=== PATIENT | male | born 1960 | race Caucasian/White ===

== ENCOUNTER 2018-02-22 18:52 | Emergency (ER) | payer BC, SELFPAY ==
[2018-02-22 18:55] VITALS: BP 136/96; PULSE 97; RESP 18; TEMP 37; O2SAT 98
--- NOTE | 2018-02-22 19:32 | ED.GENADUL_ITS ---
Discharge Plan Disposition Patient Disposition: HOME Condition: Fair Discharge Details Chief Complaint: Orthopedic Clinical Impression: Effusion of knee joint, left, Internal derangement of knee Primary Care Provider: Robert Kaur ED Provider: Darcy Walsh Home Meds and New Rx's Prescriptions: No Action No Known Home Meds RF: 0 Discharge Instructions Instructions: Swollen Knee Joint (ED), Knee Pain (ED) Additional Instructions: Encourage rest, ice, elevation. Please call orthopedics for follow up, you may call the office tomorrow [phone]. Tylenol and/or Motrin as needed for discomfort. If you develop redness, warmth, drainage, fevers/chills please seek care urgently once again. Avoid activities that cause increased pain. Referrals: Silvino Charles MD [ [facility] STAFF PHYSICIAN] - Discharge Data Discharge Date/Time-TO BE ENTERED AT DEPARTURE: 02/22/18 19:50 Medical Decision Making Patient is a 57-year-old male presenting today with chief complaint of chronic left knee pain. He reports that he had difficulty with his knee for several years. Reports that he has had waxing and waning effusion. Reports that he has worn a brace on and off. Few days ago, while at work, he is wearing a knee brace when the knee let go. Denies actual fall. Did not land on the knee. Since that time he has noted swelling. Patient does have a moderate effusion on exam. No erythema or warmth. Patient presents with request to be established with primary care. This sounds to have been an issue for several years. No recent trauma. No ligamentous laxity on exam. Patient is able to straight leg raise. Limited flexion, likely secondary to the effusion. Patient discuss treatment options. We did discuss x-ray but at this point, he would prefer evaluation by orthopedics first. Advised that this point he may show degenerative changes but likely would not have any acute findings as he has not had any recent trauma. Advised he may need follow-up with orthopedics. He will be placed on their list for follow-up. Encouraged rest, ice, elevation. I did advise splinting and patient declined this. He reports he is been wearing a sleeve. I did advise the use of a hinged knee brace. I am concerned, as the patient has had catching and locking and pain worse with flexion and squatting, he may have a meniscal injury. Patient declined hinged knee brace. Insists that bracing tends to make his pain worse. Encourage rest , ice, elevation. Tylenol and/or ibuprofen as needed for discomfort. All his questions and concerns were addressed and he is in agreement with this plan. HPI General Mode of arrival: ambulatory . Date/Time Provider Initiated Documentation: 02/22/18 19:09 . Limitations to Documentation: no limitations . Information obtained by: patient . History of Present Illness 57 year old M presents to the emergency department with the chief complaint of left knee pain, described as moderate, Quality is described as aching, and is localized to the left and lower extremity. Patient reports no radiation. Patient started experiencing this year(s) and it has been intermittent. Cold therapy improves symptom(s), and Immobilization improves symptom(s), (elevation helps, splinting increases discomfort) Movement worsens symptoms (deep bending/squating) . Patient notes no other symptoms.; denies chest pain, cough, fever/chills, loss of appetite, nausea/vomiting, rash and weakness. Patient did receive the following treatments prior to arrival, splint Related Data Home Medications Medication Instructions Recorded Confirmed Unknown [No Known Home Meds] 02/22/18 02/22/18 Allergies Allergy/AdvReac Type Severity Reaction Status Date / Time No Known Allergies Allergy Unverified 02/22/18 18:58 General Stated Complaint: Orthopedic CIERRA: 4 Review of Systems Constitutional Reports as per HPI, Denies chills, Denies fever(s) and Denies weakness Cardiovascular Denies chest pain and Denies dyspnea Respiratory Denies cough and Denies dyspnea Musculoskeletal Reports as per HPI, Reports abnormal gait (antalgic gait), Denies numbness and Denies tingling Integumentary/Breasts Denies erythema, Denies rash, Denies skin pain, Denies skin swelling, Denies skin ulcer and Denies sores Neurologic Reports abnormal gait (antalgic gait), Denies numbness, Denies radicular pain, Denies tingling, Denies paresthesias and Denies weakness [facility], [facility]1983 Social History Smoking/Tobacco Use Status: Current every day Exam Const General: cooperative, healthy appearing, comfortable, no acute distress, well developed and well groomed Nutritional Appearance: average body habitus and well nourished Orientation: alert and awake Resp Effort & Inspection: normal respiratory effort, able to speak in complete sentences and no respiratory distress Auscultation: clear to auscultation bilaterally Cardio Rate: regular rate Rhythm: regular rhythm Heart Sounds: S1 normal and S2 normal Skin General skin exam: no rashes or lesions noted Lesions: no lesions Rashes: no rashes Neuro General: alert and awake Cognition: normal cognition Speech: speech normal Gait: antalgic Motor: muscle tone normal throughout Sensory Exam: no sensory deficits noted Extrem Left lower extremity: normal capillary refill and knee Details: tenderness ( diffuse discomfort. No point tenderness), swelling and knee ligament exam normal ; ROM abnormal, no ecchymosis, no crepitus, no foreign bodies, no deformity and no unusual warmth; abnormal ROM (Full extension, flexion limited to 100 degrees. Has moderate effusion. No evidence of trauma. ), no cyanosis, no edema and joint enlargement noted (effusion as above) Psych Appearance: grossly normal and well kempt Mental Status: mental status grossly normal Speech and Movement: speech and movement normal Mood: congruent mood Course Vital Signs Temperature 37 C 02/22/18 18:55 Pulse 97 H 02/22/18 18:55 Respiratory Rate 18 02/22/18 18:55 Blood Pressure 136/96 H 02/22/18 18:55 Pulse Oximetry 98 02/22/18 18:55 Temperature 37 C 02/22/18 18:55 Temperature Source Temporal Artery Scan 02/22/18 18:55 Pulse 97 H 02/22/18 18:55 Respiratory Rate 18 02/22/18 18:55 Blood Pressure 136/96 H 02/22/18 18:55 Pulse Oximetry 98 02/22/18 18:55 Oxygen Delivery Method Room Air 02/22/18 18:55 Oxygen Flow Rate 0 02/22/18 18:55 Pain Level 0 02/22/18 18:55
[2018-02-22 19:54] VITALS: BP 136/96; PULSE 97; RESP 18; TEMP 37; O2SAT 98
--- NOTE | 2018-02-23 08:43 | PDOC.ERCMPRO ---
Care Management Progress Note 02/23-Darcy CARCAMO requested assistance with a PCP f/u as soon as possible for knee pain. Patient also needs to establish PCP. Tara Jaime collision technician. Referral and demographics faxed to [facility] this am.
--- NOTE | 2018-02-23 08:44 | CMPROGNOTE_ITS ---
Care Management Progress Note 02/23-Darcy CARCAMO requested assistance with a PCP f/u as soon as possible for knee pain. Patient also needs to establish PCP. Tara Jaime senior national account manager. Referral and demographics faxed to [facility] this am.
== END 2018-02-22 19:50 | disposition home or self-care (01) ==
PROVIDERS: Emergency Provider Physician Assistant; PCP Internal Medicine
DX: M25.462 Effusion, left knee (principal); M23.92 Unspecified internal derangement of left knee
CPT/HCPCS: 99282

== ENCOUNTER 2018-03-10 11:34 | Outpatient (CLI) | payer BC, SELFPAY ==
--- NOTE | 2018-03-10 11:30 | DI.RAD_ITS ---
SYMPTOM/DIAGNOSIS: PAIN LEFT KNEE: The femoral tibial joint spaces are well maintained. There is some spurring from the femoral condyles and tibial plateaus. There is severe narrowing of the patellofemoral joint. Multiple loose bodies are seen in the anterior and posterior joint space. IMPRESSION: Severe patellofemoral degenerative changes and multiple joint space loose bodies. BILATERAL MERCHANT VIEWS OF THE KNEES: There is severe narrowing of both patellofemoral joints, with a bone on bone appearance. There is prominent spurring of both patella as well as lateral patellar subluxation. Joint space loose bodies are visible on the left side. IMPRESSION: Severe bilateral patellofemoral degenerative changes and bilateral lateral patellar subluxation.
== END 2018-03-10 11:54 ==
PROVIDERS: PCP Internal Medicine; Visit Provider Physician Assistant Surgical
DX: M25.562 Pain in left knee (principal); M17.0 Bilateral primary osteoarthritis of knee
CPT/HCPCS: 73565; 73560

== ENCOUNTER 2018-04-15 10:07 | Outpatient (CLI) | payer BC, SELFPAY ==
--- NOTE | 2018-04-15 09:59 | DI.RAD_ITS ---
SYMPTOM/DIAGNOSIS: KNEE PAIN LEG LENGTH STUDY: Standing AP views were performed from the pelvis through the ankles. The hip joint spaces are well maintained. The left femoral head projects 5 mm. superior to the right. Degenerative changes are seen of both knees however there is no significant femoral tibial joint space narrowing. There are severe bilateral patellofemoral joint space narrowing with loose bodies. The ankles show mild degenerative changes. IMPRESSION: Severe patellofemoral degenerative changes. Mild leg length discrepancy. RIGHT KNEE: A single lateral view was performed. There is severe narrowing of the patellofemoral joint space with bone on bone appearance. There is some flattening and remodeling of the patella and periarticular spurring. Loose bodies are seen.
== END 2018-04-15 10:27 ==
PROVIDERS: PCP Internal Medicine; Visit Provider Physician Assistant
DX: M25.561 Pain in right knee (principal); M25.562 Pain in left knee; M17.0 Bilateral primary osteoarthritis of knee; M19.071 Primary osteoarthritis, right ankle and foot; M19.072 Primary osteoarthritis, left ankle and foot; M21.70 Unequal limb length (acquired), unspecified site
CPT/HCPCS: 73560; 77073

== ENCOUNTER 2018-06-10 09:01 | Outpatient (CLI) | payer OTHER, SELFPAY ==
[2018-06-10 10:01] LABS: HCT 45.8 % (40.0-50.0); HGB 15.1 g/dL (13.5-17.5); Mean Corpuscular Hemoglobin 31.7 pg (27.0-33.0); Mean Corpuscular Volume 96.2 fL (80-95); Mean Platelet Volume 11.2 fL (8.0-11.0); Platelet Count 255 x1000/uL (130-400); RBC 4.76 m/cumm (4.50-6.00); RBC Distribution Width 13.9 % (11.8-14.1); White Blood Cell Count 9.78 k/cumm (4.4-10.8)
[2018-06-10 10:18] LABS: Anion Gap 9.1 mmol/L (3-11); BUN 16 mg/dL (7-18); CO2 27.9 mmol/L (21.0-32.0); CREATININE 1.13 mg/dL (0.70-1.30); Calcium 9.4 mg/dL (8.5-10.1); Chloride 104 mmol/L (98-107); Glucose 121 mg/dL (70-100); Potassium 4.2 mmol/L (3.5-5.1); Sodium 141 mmol/L (136-145)
--- NOTE | 2018-06-11 13:50 | W.PREOPHP ---
Date of service: 06/10/18 Assessment and Plan (1) Osteoarthritis of both knees: Current visit: No Status: Chronic Bilateral total knee replacements. Details of surgery were discussed with patient as well as risks and pertinent anatomy. All questions were answered. Qualifiers: Osteoarthritis type: primary Qualified Code(s): M17.0 - Bilateral primary osteoarthritis of knee History of Present Illness Chief Complaint: Bilateral knee pain Narrative: Adonis is a 57-year-old male who has had known problems since he was very young. He states that he can remember that he always felt as though his patella, especially on his right knee, always seems as though it was tracking to the outside of his knee. Over time he has had no real functional issues with his knees except for that he felt as though he was never able to get his quads very strong whenever he was trying to lift weights. Over the last few months to a year he has had to decrease some of his activities due to increasing knee pain. He says that about [facility] through the day, he really feels as though he needs to take a rest because his knees hurt so badly. He also states that he has pretty significant pain when he is trying to walk downhill. He does a lot of walking outside, and this does cause him quite a bit of pain. He cannot specify which knee is worse than the other, but he does state that the left knee has a little bit trouble fully extending than the right knee. He recently has had x-rays which show very severe arthritis of both knees, with complete loss of joint space in all compartments. There are loose bodies and significant bone spurring throughout. Both of his patellas are tracking laterally on the outside of the trochlea. At this point, he knows that he needs a total knee replacement, and would like to move forward with bilateral knee replacements to get all done at the same time. Dr. Charles does agree with this plan, and Adonis is anxious to proceed. Pertinent Surgical Information Patient denies history of hypertension, CVA, CO, angina, asthma, COPD, renal or liver disorders, hepatitis, bleeding disorders, diabetes, immune or thyroid disorders. No complications from anesthesia. Review of Systems Constitutional Denies fever(s) ENT Denies dizziness and Denies sore throat Cardiovascular Denies chest pain, Denies palpitations and Denies dyspnea Respiratory Denies dyspnea Gastrointestinal Denies abdominal pain, Denies melena, Denies hematochezia, Denies diarrhea, Denies nausea and Denies vomiting Genitourinary Denies hematuria and Denies dysuria Neurologic Denies dizziness Endocrine Denies palpitations [facility] Surgical History History of tonsillectomy and adenoidectomy (Resolved) Social History Smoking/Tobacco Use Status: Current every day tobacco type: cigarettes substance use type: marijuana Meds Home Medications Medication Instructions Recorded Confirmed Type acetaminophen 650 mg PO DAILY 06/10/18 06/10/18 History omeprazole magnesium [Prilosec OTC] 20 mg PO PRN PRN 06/10/18 06/10/18 History Allergies Allergy/AdvReac Type Severity Reaction Status Date / Time No Known Allergies Allergy Unverified 04/15/18 09:35 Exam HENSC Head: normocephalic and atraumatic General nose exam: no nasal discharge Throat: uvula midline and no uvular edema Other: soft palate rises symmetrically, no erythema Eyes Conjunctivae: conjunctivae normal Sclera: sclerae normal Pupils: PERRL Resp Effort & Inspection: normal respiratory effort Auscultation: clear to auscultation bilaterally and no wheezes Cardio Rate: regular rate Rhythm: regular rhythm Heart Sounds: S1 normal, S2 normal and no murmurs Results Labs : 06/10/18 09:35 06/10/18 09:35
--- NOTE | 2018-06-11 13:56 | HPE_ITS ---
Date of service: 06/10/18 Assessment and Plan (1) Osteoarthritis of both knees: Current visit: No Status: Chronic Bilateral total knee replacements. Details of surgery were discussed with patient as well as risks and pertinent anatomy. All questions were answered. Qualifiers: Osteoarthritis type: primary Qualified Code(s): M17.0 - Bilateral primary osteoarthritis of knee History of Present Illness Chief Complaint: Bilateral knee pain Narrative: Adonis is a 57-year-old male who has had known problems since he was very young. He states that he can remember that he always felt as though his patella, especially on his right knee, always seems as though it was tracking to the outside of his knee. Over time he has had no real functional issues with his knees except for that he felt as though he was never able to get his quads very strong whenever he was trying to lift weights. Over the last few months to a year he has had to decrease some of his activities due to increasing knee pain. 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 He also states that he has pretty significant pain when he is trying to walk downhill. He does a lot of walking outside, and this does cause him quite a bit of pain. He cannot specify which knee is worse than the other, but he does state that the left knee has a little bit trouble fully extending than the right knee. He recently has had x-rays which show very severe arthritis of both knees, with complete loss of joint space in all compartments. There are loose bodies and significant bone spurring throughout. Both of his patellas are tracking laterally on the outside of the trochlea. At this point, he knows that he needs a total knee replacement, and would like to move forward with bilateral knee replacements to get all done at the same time. Dr. Charles does agree with this plan, and Adonis is anxious to proceed. Pertinent Surgical Information Patient denies history of hypertension, CVA, RI, angina, asthma, COPD, renal or liver disorders, hepatitis, bleeding disorders, diabetes, immune or thyroid disorders. No complications from anesthesia. Review of Systems Constitutional Denies fever(s) ENT Denies dizziness and Denies sore throat Cardiovascular Denies chest pain, Denies palpitations and Denies dyspnea Respiratory Denies dyspnea Gastrointestinal Denies abdominal pain, Denies melena, Denies hematochezia, Denies diarrhea, Denies nausea and Denies vomiting Genitourinary Denies hematuria and Denies dysuria Neurologic Denies dizziness Endocrine Denies palpitations [facility] Surgical History History of tonsillectomy and adenoidectomy (Resolved) Social History Smoking/Tobacco Use Status: Current every day tobacco type: cigarettes substance use type: marijuana Meds Home Medications Medication Instructions Recorded Confirmed Type acetaminophen 650 mg PO DAILY 06/10/18 06/10/18 History omeprazole magnesium [Prilosec OTC] 20 mg PO PRN PRN 06/10/18 06/10/18 History Allergies Allergy/AdvReac Type Severity Reaction Status Date / Time No Known Allergies Allergy Unverified 04/15/18 09:35 Exam HENGA Head: normocephalic and atraumatic General nose exam: no nasal discharge Throat: uvula midline and no uvular edema Other: soft palate rises symmetrically, no erythema Eyes Conjunctivae: conjunctivae normal Sclera: sclerae normal Pupils: PERRL Resp Effort & Inspection: normal respiratory effort Auscultation: clear to auscultation bilaterally and no wheezes Cardio Rate: regular rate Rhythm: regular rhythm Heart Sounds: S1 normal, S2 normal and no murmurs Results Labs : 06/10/18 09:35 06/10/18 09:35
== END 2018-06-10 09:21 ==
PROVIDERS: PCP Internal Medicine; Visit Provider Student in an Organized Health Care Education/Training Program
DX: M25.561 Pain in right knee (principal); M25.562 Pain in left knee; M17.0 Bilateral primary osteoarthritis of knee; Z01.818 Encounter for other preprocedural examination
CPT/HCPCS: 36415; 80048; 85027; 86850; 86900; 86901; NC

== ENCOUNTER 2018-06-18 05:53 | Inpatient (IN) | payer OTHER, SELFPAY ==
[2018-06-18] VITALS (15 sets, daily range): BP systolic 93–116; BP diastolic 62–76; PULSE 57–84; RESP 13–20; TEMP 35.5–36.6; O2SAT 95–100
[2018-06-18] MEDS: Gabapentin 300 MG CAP PO ×2 (06:34→22:17)
[2018-06-18] MEDS: oxyCODONE-CR 10 MG TABCR PO (06:34)
[2018-06-18] MEDS: Acetaminophen 500 MG TAB 1000 MG PO ×3 (06:34→20:20)
[2018-06-18] MEDS: Celecoxib 200 MG CAP 400 MG PO (06:34)
[2018-06-18] MEDS: Lactated Ringers 1,000 ML 80 ML IV ×3 (06:35→14:49)
[2018-06-18] MEDS: Bupivacaine LIPOSOME/PF 133 MG/10 ML VIAL IJ (11:20)
[2018-06-18] MEDS: Normal Saline 20 ML VIAL (11:20)
[2018-06-18] MEDS: Ketorolac 30 MG/ML VIAL (11:20)
[2018-06-18] MEDS: Bupivacaine 0.25% Pres-Free 30 ML VIAL (11:20)
[2018-06-18] MEDS: Normal Saline Flush 10 ML SYR IV (14:48)
[2018-06-18] MEDS: Celecoxib 100 MG CAP 200 MG PO (20:20)
[2018-06-18] MEDS: Enoxaparin 40 MG/0.4 ML SYR SC (20:20)
--- NOTE | 2018-06-18 21:16 | ROE_ITS ---
DATE OF SURGERY: June 18, 2018 PREOPERATIVE DIAGNOSIS: Bilateral knee osteoarthritis. POSTOPERATIVE DIAGNOSIS: Bilateral knee osteoarthritis. SURGERY: Bilateral total knee arthroplasties. SURGEON: Silvino Charles M.D. SETUP TECHNICIAN: ALMA Cleary PA-C Medical student: Devin Burger ANESTHESIA: Spinal with MAC ESTIMATED BLOOD LOSS: 500 cc FINDINGS: There was significant arthritis of both knees. 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 There were also arthritic changes seen throughout all the other compartments of the knee as well. Bilateral knee arthroplasties were completed successfully. COMPLICATIONS: None. DISPOSITION: The patient was awakened from anesthesia and taken to the PACU in a stable condition. INDICATION FOR PROCEDURE: Adonis is a 57-year-old who has had known bilateral knee osteoarthritis. He has chronically had patellofemoral issues for many years since he was a kid. He is an active individual and now has significant limitations due to his knees. He is unable to golf. He is unable to walk for any period of time. He is also unable to complete his duties at work. He has tried conservative treatment options. However, given the significant dysfunction and their failure, I recommended surgical intervention. I reviewed the risks of the procedure to include bleeding, infection, pain, stiffness, damage to nerves and vessels, damage to muscles and tendons, fracture, and blood clot. Despite these risks, he elected to proceed. Given his good healthy status and the severity of both knees, I did offer bilateral knee arthroplasty which he agreed to proceed with. PROCEDURE DESCRIPTION: Adonis was greeted in the preoperative holding area. His identity was confirmed and the correct side was identified and marked. The consent was reviewed with the patient and signed. The History and Physical was updated. He was taken back to the PACU where bilateral adductor nerve blocks were performed by Denver Salmon CRNA. After successful administration of the adductor nerve blocks with bupivacaine and Exparel, he was taken to the Operating Room. Light sedation was then administered. A León catheter was placed. Nonsterile tourniquets were then placed high up on the bilateral thighs. Both legs were prepped with ChloraPrep and draped in a standard fashion. Prophylactic antibiotics in the form of cefazolin were given. One gram of tranexamic acid was also given. A time-out was performed for safe surgery. I started with the left side. A midline skin incision was made. This was taken down through the skin sharply. It was noted at this time that he was curling his toes and seemed to be responding to the surgery although his vital signs were stable. Given this reason, the decision was made to make him a little bit deeper just in case there was incomplete coverage of the spinal. An LMA was placed and we continued with the surgery. The deep tissues were then dissected exposing the extensor mechanism. Full-thickness skin flaps were elevated. A medial parapatellar arthrotomy was completed. Bovie electrocautery was used to stop any bleeding. The patella was everted and the patellar fat pad was resected. The anterior horn of the lateral meniscus was resected. The anterior synovium of the femur was resected. A medial periosteal peel was then performed, elevating the medial soft tissues in a subperiosteal dissection format. The knee was then brought up into flexion. The ACL and PCL were resected. The patella was huge. It was actually impinging on the lateral femur and, therefore, extra osteophytes from the patella were removed. This allowed more mobilization of the patella. I also performed a release from the lateral aspect of the patella as well. The trochlea was, in essence, nonexistent. This was a type C dysplastic trochlea with a prominence laterally and a smaller prominence medially. Osteophytes were resected from the femur and from the medial tibia. It also appeared to have a hypoplastic lateral femoral condyle. The step drill was then used to make entrance into the intramedullary space of the femur. The [employer] intramedullary guide was inserted. Based on preoperative templating I set the distal cut for 5 degrees of valgus and 10 degrees of distal femoral resection. The guide did not completely touch the lateral femur given some hypoplasia which was appreciated. The cut was completed. We then turned our attention to the tibia. The tibia was subluxed forward. The tibial guide was placed and made sure to medialize the components to adequately put the implant into proper position. The cut was set for 2 mm off of the medial side which corresponded to 8 mm off the lateral side. This was pinned into position. The cut was performed while protecting the collateral ligaments. A spacer block was then inserted to check for the gap dimensions. Unfortunately, this was still too tight even for the 5-mm spacer block. Therefore, I went back and resected two additional millimeters off of the femur. Once again the gap was still too tight and, therefore, I resected another 2 mm off the tibia. I was then able to fit in a 5-mm spacer block. This provided excellent extension and no significant laxity to varus or valgus stress. The pins were removed and the knee was brought into flexion. The sizer for the femur was placed. Again, there was hypoplasia of the lateral femur. I was unable to use the posterior condyles as a true reference point and manually moved the device to be parallel to the epicondylar axis. There was no true florencia's line to reference given the dysplasia of the trochlea. This was then pinned in position. The size matched a size 6 femur. The size 6 cutting block was placed onto the end of the femur and secured. The anterior posterior cuts were performed first, followed by the chamfer cuts. The collateral ligaments were protected at all times. The cutting block was removed. The notch cutting guide was placed, making sure to lateralize the femur as much as could be tolerated. This was pinned in position and the box cut was performed with a reciprocating saw. The cut surfaces were then rasped down to smooth any prominences and irregularities. The menisci were removed from both medial and lateral compartments. Trial components were placed with a size 6 femur and a size 6 tibia with a 5-mm poly. His knee then came to full extension. The patella was noted to still track somewhat laterally but there was significant irregularity of the patella. The knee was stable both in flexion and extension. Attention was then turned to the patella. The very center portion of the patella measured about 13 mm in thickness, shaped as a large saucer. This low point was thus our reference point. The patella was so large, even after clearing off osteophytes, that it would not fit within the patellar clamp. I then performed a freehand technique. Penetrating towel clips were placed and then pinned on either side of the patella and the patella was brought down flush with the bottom of its worn surface with a blade. This recreated the appropriate thickness of the patella. This measured approximately 13-15 mm. I then placed a 41-mm patella as far medial as possible. This was pressed into the bone and trialed. It had excellent tracking with a no thumbs technique and no liftoff. I resected the lateral facet of the patella for no impingement as a 41mm patella was still undersized in overall respect to the size of his patella. Lugholes were drilled for the patella. The knee was brought back up into flexion and the lugholes for the femur were drilled. The tibia was then prepared. The size 6 tibia appeared to be the correct size. It was rotated appropriately as noted from the initial motion of the knee. It was externally rotated to about the medial one-third of the tibial tubercle. It was pinned in position making sure to have no overhang and to be appropriately sized. The proximal tibia was then prepared with both a reamer and a punch. The trial implants were removed. The wound was irrigated. The selected implants were opened onto the back table. A periarticular cocktail was injected throughout the knee. This periarticular cocktail consisted of 10 cc of Exparel, 60 cc of 0.25% bupivacaine, 100 cc of normal saline, and 30 mg of ketorolac split between the two knees. This cocktail was injected within the soft tissues of the knees, focusing primarily on the posterolateral and posteromedial structures, making sure to aspirate first. After the injection of the cocktail throughout all of the soft tissues of the knee was performed the knee was thoroughly irrigated. The bone surfaces were clean and dry. The cement was being prepared on the back table. Once the cement was in an appropriate phase, it was then pressed into the tibial cut surface. It was made sure to be kept dry. The tibial component had cement placed on its backside and it was also implanted into the prepared surface. The tibial component was then implanted based on the previously placed keel punch. It was seated against the bone with mallet blows. Excess cement was removed. The femur was then prepared by manually impregnating cement into the cut surfaces of the tibia. The femoral component was impacted into position until it was well seated against the distal end of the femur. Excess cement was also removed. The trial polyethylene was inserted, 5 mm. The knee was brought into extension where it stayed for the entire duration of the curing process. Some cement was placed onto the patella and the 41-mm patella was then implanted and clamped. While the cement was curing, I then completed the periarticular injection. The knee was then thoroughly irrigated. After the cement had cured, approximately 15 minutes, the clamp was removed and the knee was tested. The knee was stable to varus and valgus stress. It had full extension and full flexion. The patella was tracking without thumbs. The knee was pinned back up into flexion and the size 6 x 5 mm polyethylene was inserted without difficulty. The arthrotomy was closed with #1 Vicryl followed by a #2 STRATAFIX. The tourniquet was released after 37 minutes. The deep tissues were closed with a #0 Vicryl, followed by a #2-0 Vicryl, and then a #3-0 Monocryl, and reinforced with Skin Affix skin glue. While the final layers of the left knee were being closed, I then proceeded with the right knee. A midline incision was made. Dissection was carried down sharply through the skin down to the extensor mechanism. Full-thickness flaps were elevated. The extensor mechanism was identified. The extensor mechanism was then incised in a medial parapatellar approach. Like the other knee, there was some notable size to the patella. Osteophytes around the patella were removed in order to help with visualization and mobility of the patella. There was a dysplastic trochlea. There was arthritis seen throughout all three compartments. The anterior synovium from the femur was resected. The patellar fat pad was also resected to expose the lateral compartment. With the knee in extension a medial peel was performed with subperiosteal dissection over the medial tibial tissues. This exposed the tibial surface. Osteophytes were removed from the tibia and femur. The knee was brought back up into flexion with the patella everted. The ACL and PCL were resected. The femoral step drill was inserted into the intramedullary space. The intramedullary guide was placed along the femur. The lateral femur was noted to be significantly hypoplastic, even more so than the left side. Based on the findings of the other side and having to cut more distance, I added two onto this and cut a 12-mm cut off the distal femur since there was a significant amount of cartilage left on the medial femur and the cut on the lateral side would be significantly thin. This was pinned into position with a 5-degree valgus angle. The distal femur was then cut while protecting the surrounding soft tissues. We then turned our attention to the tibia. The tibial guide was placed on the tibia. I made sure to medialize the boom so that it directed towards the center of the ankle. A stylus was placed and we decided to make the initial medial cut at 4 mm, which corresponded to about a 10-mm lateral cut. This was pinned into position. With the soft tissues and collateral ligaments protected, the proximal tibia was cut. This was passed over a second time to make sure it was a full cut. The guide was removed and the tibial cut surface was also removed. A spacer block was inserted and a size 6-mm spacer block was inserted without difficulty. This provided excellent extension and stability to varus and valgus stress. The knee was then brought back up into flexion. The femoral sizing guide was placed. Just like the left side, the posterior aspect of the lateral femur was significantly hypoplastic. It was not able to be referenced. I made the guide parallel to the epicondylar axis and this was pinned into position. It corresponded to a size 6 femur. The size 6 femur cutting guide was placed onto the distal end of the femur and secured. An deepika wing was used to make sure the anterior cut was okay. A spacer block was also inserted which made sure that the flexion gap was symmetrical and not too loose or tight. With the collateral ligaments protected, I then performed the anterior posterior cuts, followed by the anterior and posterior chamfer cuts. This excess bone was removed. A notch cutting guide was placed onto the femur and it was secured into position. A box cut was cut with a reciprocating saw. The cut was completed with a rasp. The cutting guide was removed and the menisci were addressed. Both medial and lateral menisci were resected. Trial components were placed onto the femur and the tibia. The knee was brought into extension and tested for stability and range of motion. The size 6-mm polyethylene appeared to have the appropriate amount of stability. There was a slight amount of play both medial and lateral which was symmetrical in flexion and extension. The patella was actually starting to track fairly well too although it was deformed. Given that I went ahead and removed some of these osteophytes from the patella, I was able to use a patellar clamp. Again, my goal was to bring down the cut surface in plane with the thinnest portion of the patella. This bone was resected. It was resected and then planed and kept to be a thickness of about 13-14 mm. A size 41-mm patella was then placed in a medial position. The lateral facet of the patella was resected. The lugholes were drilled with the 41-mm patella after it was ranged. There was excellent tracking. The leg was brought back up into flexion and the lugholes in the femur were drilled. These components were removed and the tibia was subluxed forward to expose the cut tibial surface. The size 5 tibial tray appeared to have the best fit. The 6 seemed to run out of space in the anterior to posterior dimension, which was different than the contralateral side. The 5 was rotated externally to about the medial third of the tibial tubercle. It was pinned into position. It was prepared with both the reamer and the keel punch. These components were then removed. The real components were opened up on the back table. While the cement was being prepared on the back table, the knee was thoroughly irrigated. Areas of sclerosis were opened with a 2-mm drill. The periarticular cocktail was injected in the deep tissues of the knee, focusing posteriorly and in the subperiosteal spaces. Once the cement was ready, there was some cement placed to the backside of the tibial component as well as into the posterior flange of the femoral component. The cement was mainly impregnated into the cut surface of the tibia. It was made sure to be kept dry. The tibial component was impacted into position and excess cement was removed. Likewise, the cement was mainly impregnated into the cut surface of the distal femur. The femoral component was impacted into the end of the femur with light mallet blows. Excess cement was removed. A size 6- mm polyethylene was inserted. The knee was brought into extension where it stayed for the entirety of the curing process. Unfortunately, the remainder of the cement seemed to be too firm to work with and, therefore, another single batch of cement was prepared under vacuum assistance. Once this was ready, the cement was placed onto the cut patellar surface and the patellar button was placed and clamped in position where it stayed until it finally cured. Once all components were fully set and the cement was fully cured, the knee was tested. There was noted to be about 2 mm of play both in varus and valgus stress which was similar through mid flexion and end flexion. Therefore, I went up to a size 7-mm polyethylene. This seemed to provide increase in stability without a loss of extension or flexion. Therefore, I went with the size 7-mm polyethylene. The knee was brought into flexion and the knee was checked for any excess cement which was removed if found. The polyethylene was inserted into position without difficulty. The knee was brought into 90 degrees of flexion where the closure was performed. The arthrotomy was closed with a #1 Vicryl followed by a #2 STRATAFIX. The tourniquet was released at this time after 37 minutes. The deep tissues were closed with a #0 Vicryl followed by a #2-0 Vicryl. The skin was closed with a #3-0 Monocryl with Skin Affix glue. Mepilex silver dressings were placed on both knees. A [id number] Carlitos wrap was placed on both legs followed by a Cryo/Cuff. At the end of the case all counts were correct. The patient suffered no significant complication. He was awaked from his sedation and anesthesia and taken to the PACU in a stable condition.
[2018-06-19] MEDS: Lactated Ringers 1,000 ML 80 ML IV (03:23)
[2018-06-19 06:57] VITALS: BP 94/57; PULSE 68; RESP 20; TEMP 36.6; O2SAT 99
[2018-06-19 07:21] LABS: HCT 36.4 % (40.0-50.0); HGB 12.1 g/dL (13.5-17.5); Mean Corp. HGB Concentration 33.2 g/dL (32.0-36.0); Mean Corpuscular Hemoglobin 32.3 pg (27.0-33.0); Mean Corpuscular Volume 97.1 fL (80-95); Mean Platelet Volume 10.9 fL (8.0-11.0); Platelet Count 228 x1000/uL (130-400); RBC 3.75 m/cumm (4.50-6.00); RBC Distribution Width 13.6 % (11.8-14.1); White Blood Cell Count 13.47 k/cumm (4.4-10.8)
[2018-06-19 07:28] LABS: Anion Gap 7.8 mmol/L (3-11); BUN 22 mg/dL (7-18); CO2 26.2 mmol/L (21.0-32.0); CREATININE 1.04 mg/dL (0.70-1.30); Calcium 8.6 mg/dL (8.5-10.1); Chloride 108 mmol/L (98-107); Glucose 105 mg/dL (70-100); Potassium 4.2 mmol/L (3.5-5.1); Sodium 142 mmol/L (136-145)
[2018-06-19 07:40] VITALS: BP 110/79; PULSE 80; RESP 18; TEMP 36.6; O2SAT 98
--- NOTE | 2018-06-19 08:42 | PT.INIE ---
Date of service: 06/19/18 Time of Service: 08:00 PT Notes Inpatient Physical Therapy Evaluation Date: 06/19/18 Referring Doctor: Dr. Charles PT Orders: PT CONSULT: s/p bilat TKA Precautions: fall, standard Patient Profile/Admitting Diagnosis: Patient admitted after undergoing bilat TKA 06/18/18. PMHX: current everyday smoker Social History/Home Situation: Patient lives in [place] with his and teenage son. He has 2 PRIMO, then single level. 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 Equipment Owned/DME: raised toilet seat, grab bars Subjective: Adonis states that he is feeling well. He got some rest last night and is ready to to get up and moving. Objective: General Observation: Resting in bed with bilat cryocuffs. No lines. Mental Status: A&Ox3 Pain: patient reports stiffness R>L ROM: Right Upper Extremity: WFL Left Upper Extremity: WFL Right Lower Extremity: Hip ROM is WFL. Patient actively demonstrates -10 extension to 110 degrees flexion. Left Lower Extremity: Hip ROM is WFL. Patient actively demonstrates -10 extension to 120 degrees flexion. Strength: Right Upper Extremity: grossly 5/5 Left Upper Extremity: grossly 5/5 Right Lower Extremity: Quad strength at least 3/5. Functionally able to perform SLR without extension lag. Left Lower Extremity: Quad strength at least 3/5. Functionally able to perform SLR without extension lag. Sensation: Sensation intact distally Bed Mobility/Transfers: supine-sit: supervision sit-stand: supervision stand-sit: supervision Gait: Patient ambulates 100'x2 with WW, WBAT and CG. Stairs: Patient was educated on stair management, which we will attempt this afternoon. Balance: Static Sitting: Normal Dynamic Sitting: Normal Static Standing: Fair Dynamic Standing: Fair Special Tests: Mobility Limitations Standardized Measure [facility] AM-PAC 6 clicks Basic Mobility Inpatient Short Form: Raw Score: 21 Standardized Score: 50.25 CMS Score: 29% deficit Informed Consent/Education: Patient instructed in purpose of PT consult and plan of care. He was oriented to postoperative packet, and instructed in therapeutic exercises and early home program, consisting of antiembolic activities. In standing position he completed weight shifting prior to initiation of ambulation. Performed gait training activities, and instructed patient and technique for stair management, which we will attempt this afternoon. Assessment: Patient is a 57 year old male referred to physical therapy services with the diagnosis of 1 day status post bilateral TKA. Patient presents with clinical signs and symptoms consistent with postoperative status, as demonstrated by the following impairment level findings: 1. Decreased functional strength bilateral lower extremities 2. Gait impairments 3. Balance deficits Impairments are contributing to the following functional limitations: 1. Decreased independence with household distance ambulation 2. Unable to manage stairs 3. Fall risk AMPAC score 29% deficit. Patient is [place] Low 46260 complexity based on the following: History: 57-year-old male, 1 day status post bilateral TKA. No significant contributing medical history, outside of patient being a current everyday smoker. Examination: Functional limitations as noted above Presentation: Stable Decision Making: Low complexity Goals: Goals X1 week 1. Supine-Sit: Supervision 2. Sit-Supine : Supervision 3. Sit-Stand : Supervision 4. Stand-Sit : Supervision 5. Bed-Chair : Supervision with WW 6. Chair-Bed : Supervision with WW 7. Gait : Supervision with WW x 200' 8. Stairs : Patient able to acsend and descend (2) 6 inch stairs with bilateral upper extremity support and contact-guard 9. Independent with home exercise program Plan of Care/Treatment Plan: 1-2x/day, 7 days/week x 1 week. Plan of care has been reviewed with the ACCOUNT DEVELOPMENT ASSOCIATE providing the service under Physical Therapy direction. Initiate Physical Therapy intervention for strengthening, bed mobility, transfers, gait, stairs, balance training, use of assistive device. DISCHARGE RECOMMENDATIONS: Home with wheeled walker TREATMENT CODE/TIME: 30 minutes (18874)
--- NOTE | 2018-06-19 08:46 | IN_ITS ---
Date of service: 06/19/18 Time of Service: 08:00 PT Notes Inpatient Physical Therapy Evaluation Date: 06/19/18 Referring Doctor: Dr. Chalres PT Orders: PT CONSULT: s/p bilat TKA Precautions: fall, standard Patient Profile/Admitting Diagnosis: Patient admitted after undergoing bilat TKA 06/18/18. PMHX: current everyday smoker Social History/Home Situation: Patient lives in [place] with his and teenage son. He has 2 PRIMO, then single level. 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 Equipment Owned/DME: raised toilet seat, grab bars Subjective: Adonis states that he is feeling well. He got some rest last night and is ready to to get up and moving. Objective: General Observation: Resting in bed with bilat cryocuffs. No lines. Mental Status: A&Ox3 Pain: patient reports stiffness R>L ROM: Right Upper Extremity: WFL Left Upper Extremity: WFL Right Lower Extremity: Hip ROM is WFL. Patient actively demonstrates -10 extension to 110 degrees flexion. Left Lower Extremity: Hip ROM is WFL. Patient actively demonstrates -10 extension to 120 degrees flexion. Strength: Right Upper Extremity: grossly 5/5 Left Upper Extremity: grossly 5/5 Right Lower Extremity: Quad strength at least 3/5. Functionally able to perform SLR without extension lag. Left Lower Extremity: Quad strength at least 3/5. Functionally able to perform SLR without extension lag. Sensation: Sensation intact distally Bed Mobility/Transfers: supine-sit: supervision sit-stand: supervision stand-sit: supervision Gait: Patient ambulates 100'x2 with WW, WBAT and CG. Stairs: Patient was educated on stair management, which we will attempt this afternoon. Balance: Static Sitting: Normal Dynamic Sitting: Normal Static Standing: Fair Dynamic Standing: Fair Special Tests: Mobility Limitations Standardized Measure [facility] AM-PAC 6 clicks Basic Mobility Inpatient Short Form: Raw Score: 21 Standardized Score: 50.25 CMS Score: 29% deficit Informed Consent/Education: Patient instructed in purpose of PT consult and plan of care. He was oriented to postoperative packet, and instructed in therapeutic exercises and early home program, consisting of antiembolic activities. In standing position he completed weight shifting prior to initiation of ambulation. Performed gait training activities, and instructed patient and technique for stair management, which we will attempt this afternoon. Assessment: Patient is a 57 year old male referred to physical therapy services with the diagnosis of 1 day status post bilateral TKA. Patient presents with clinical signs and symptoms consistent with postoperative status, as demonstrated by the following impairment level findings: 1. Decreased functional strength bilateral lower extremities 2. Gait impairments 3. Balance deficits Impairments are contributing to the following functional limitations: 1. Decreased independence with household distance ambulation 2. Unable to manage stairs 3. Fall risk AMPAC score 29% deficit. Patient is assessed as Low 17444 complexity based on the following: History: 57-year-old male, 1 day status post bilateral TKA. No significant contributing medical history, outside of patient being a current everyday smoker. Examination: Functional limitations as noted above Presentation: Stable Decision Making: Low complexity Goals: Goals X1 week 1. Supine-Sit: Supervision 2. Sit-Supine : Supervision 3. Sit-Stand : Supervision 4. Stand-Sit : Supervision 5. Bed-Chair : Supervision with WW 6. Chair-Bed : Supervision with WW 7. Gait : Supervision with WW x 200' 8. Stairs : Patient able to acsend and descend (2) 6 inch stairs with bilateral upper extremity support and contact-guard 9. Independent with home exercise program Plan of Care/Treatment Plan: 1-2x/day, 7 days/week x 1 week. Plan of care has been reviewed with the RESEARCH AGRICULTURAL ENGINEER providing the service under Physical Therapy direction. Initiate Physical Therapy intervention for strengthening, bed mobility, transfers, gait, stairs, balance training, use of assistive device. DISCHARGE RECOMMENDATIONS: Home with wheeled walker TREATMENT CODE/TIME: 30 minutes ([id number])
[2018-06-19] MEDS: Omeprazole 20 MG CAPCR PO (09:30)
[2018-06-19] MEDS: Celecoxib 100 MG CAP 200 MG PO (09:30)
[2018-06-19] MEDS: Acetaminophen 500 MG TAB 1000 MG PO ×2 (09:30→14:36)
[2018-06-19 11:40] VITALS: BP 120/77; PULSE 71; RESP 18; TEMP 36.3; O2SAT 100
[2018-06-19] MEDS: Rivaroxaban 10 MG TABLET PO (11:47)
--- NOTE | 2018-06-19 13:37 | DSE_ITS ---
Date of service: 06/19/18 Time of Service: 13:37 DS: Diagnosis Discharge Diagnosis (1) Osteoarthritis of both knees: Status: Chronic Discharge Plan Disposition Patient Disposition: HOME Condition: Good Discharge Details Reason For Visit: BILATERAL KNEE DJD Admit Date/Time: 06/18/18 05:53 Admit Provider: Silvino Charles Attending Provider: Silvino Charles Primary Care Provider: Robert Kaur Hospital Course Hospital Course: Patient was admitted to the medical/surgical floor following the procedure. It was tolerated well without any notable medical, surgical, or anesthetic complications. Mobilization began postoperatively. The jacobson catheter was removed and voiding spontaneously. Vitals were stable. Physical therapy worked with the patient and was cleared for discharge home. No acute medical issues. Home Meds and New Rx's Prescriptions: New Xarelto 10 mg Tablet 10 mg PO DAILY Qty: 14 RF: 0 celecoxib 200 mg capsule 200 mg PO BID PRN (Reason: pain) Qty: 60 RF: 1 acetaminophen 500 mg capsule 1,000 mg PO Q8H PRN (Reason: pain) Qty: 90 RF: 3 oxycodone 5 mg tablet 5 mg PO Q4H Qty: 15 RF: 0 Continued acetaminophen 650 mg Tablet Extended Release 650 mg PO DAILY RF: 0 Changed Prilosec OTC 20 mg Tablet,Delayed Release (Dr/Ec) 20 mg PO DAILY Qty: 0 RF: 0 Discharge Instructions Additional Instructions: Dr. Charles?s Total Knee Discharge Instructions Activity: The most important activity is to walk. You should try to take short walks a few times a day. It is important that when resting you work on keeping the knee straight. Avoid putting a pillow behind the knee as this will encourage flexion. Work on range of motion exercises as provided by Physical Therapy. - Start outpatient physical therapy within 2 weeks. - You should wear the JOSEPH hose on both legs for 4 weeks. Dressing: The ORLY wrap may be removed on post-operative day #2, Friday. Keep the surgical dressing in place for at least one week. After the first week it may be removed and replace with light gauze and tape or nothing. It may get wet after 3 days but avoid soaking the dressing. If it gets wet, just lightly pat dry. Medications: - You should take Tylenol and anti-inflammatory (Celebrex) as your primary pain control medications. If Celebrex is too costly, just take 1-2 Aleve twice a day instead. - You have been prescribed a stronger pain medication (Oxycodone) for breakthrough pain, take as needed as prescribed. - You will be taking Rivaroxaban 10mg daily for DVT prevention unless instructed otherwise. - If you have constipation you should take Colace or Miralax (both [id number]). It takes most people 3-4 days to have a bowel movement. Follow-up: 2 weeks Stand Alone Forms: Lynne Lane ([facility]) Referrals: Silvino Charles MD [ [facility]FF [facility]YSICIAN] - Activity:: Activity as Tolerated Equipment/Supplies:: Walker Diet:: As Tolerated Discharge Orders Discharge Orders: Discharge Order (Routine); Ordered 06/19/18 Ordered By: Silvino Charles DS: Data Vitals/I&O Vitals and I&O: Vital Signs Temperature 36.3 C L 06/19/18 11:40 Temperature Source Tympanic 06/19/18 11:40 Pulse 71 06/19/18 11:40 Pulse Rhythm Regular 06/18/18 20:01 Respiratory Rate 18 06/19/18 11:40 Respiratory Effort Non-Labored 06/18/18 20:01 Respiratory Depth Normal 06/18/18 20:01 Respiratory Pattern Normal 06/18/18 20:01 Blood Pressure 120/77 06/19/18 11:40 Pulse Oximetry 100 06/19/18 11:40 Respiratory End-tidal CO2 32 06/18/18 13:18 Oxygen Delivery Method Room Air 06/19/18 11:40 Oxygen Flow Rate 0 06/19/18 11:40 Pain Level 0 06/19/18 07:40 Intake & Output 06/18/18 06/19/18 06/19/18 23:59 11:59 23:59 Intake Total 1842 / 3012 1460 / 1460 Output Total 1399 2800 / 2800 Balance 442 / 987 -1340 / -1340 Intake: IV 522 / 1692 1100 / 1100 Oral 1320 / 1320 360 / 360 Output: Urine 1400 / 1525 2800 / 2800 Other: Urine Color Yellow Pale Yellow Urine Appearance Cloudy Clear Urine Odor None Comment emptied from the jacobson Emesis Description None Labs on day of discharge: Labs from last 24 hours 06/19/18 06/19/18 07:05 07:05 WBC 13.47 H RBC 3.75 L Hgb 12.1 L Hct 36.4 L MCV 97.1 H MCH 32.3 MCHC 33.2 RDW 13.6 Plt Count 228 MPV 10.9 Sodium 142 Potassium 4.2 Chloride 108 H Carbon Dioxide 26.2 Anion Gap 7.8 BUN 22 H Creatinine 1.04 Estimated GFR/1.73 m2 >= 60.00 Glucose 105 H Calcium 8.6 PFSH Surgical History History of tonsillectomy and adenoidectomy (Resolved) Social History Smoking/Tobacco Use Status: Current every day tobacco type: cigarettes substance use type: marijuana
--- NOTE | 2018-06-19 14:26 | INITIAL_ITS ---
- If Service Date Differs Date of service: 06/19/18 Time of Service: 14:23 Care Management Initial Assess REASON FOR HOSPITALIZATION:: Bilat knee replacements PAST MEDICAL HISTORY/PAST SURGICAL HISTORY:: Osteoarthritis PREVIOUS FUNCTIONAL STATUS/SOCIAL/FAMILY SUPPORTS:: Adonis lives at home in [place], [place] with his spouse. 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 [place]. He is independent with ADL?S and transportation. CURRENT FUNCTIONAL STATUS:: Adonis is sitting up in the chair during CM assessment. He is planning on discharging home today. He states his pain is well-controlled and he feels that he will be able to manage care at home with the help of his spouse. He understands use of the cryocuff to assit with pain control and reduce swelling. ADVANCE DIRECTIVES:: none on file he has the forms. Has patient been provided with information about the portal?: Yes Did the patient sign up for the portal?: No CODE STATUS:: Full Code INSURANCE COVERAGE / FINANCIAL ISSUES:: [employer] CURRENT HOME/COMMUNITY SERVICES/EQUIPMENT:: none POTENTIAL DISCHARGE NEEDS:: Follow up scheduled with Dr. Charles and out patient PT. PATIENT/FAMILY EDUCATION NEEDS:: Discharge education, limitations, follow-up plan of care, medications, self management and ask me three discussion. ANTICIPATED BARRIERS TO DISCHARGE:: None TRANSPORTATION:: Via private car and family. PLAN:: Adonis is being discharged home today. He has a plan to manage pain, FWW coordinated through [facility] as DME of choice by patient. He will have outpatient PT with [facility]. No other services anticipated at time of discharge.
[2018-06-19] MEDS: oxyCODONE 5 MG TAB PO (14:36)
[2018-06-19] MEDS: Docusate Sodium 100 MG CAP PO (14:36)
--- NOTE | 2018-06-19 15:04 | PT.INTREAT ---
Date of service: 06/19/18 Time of Service: 15:04 PT Notes Inpatient Physical Therapy Treatment Note [facility] Date: 06/19/18 PRECAUTIONS: Fall, WBAT B SUBJECTIVE: Adonis states that he is feeling pretty good this afternoon. He feels that he is ready to return home today. OBJECTIVE: PAIN: No c/o pain BED MOBILITY/TRANSFERS Sit-stand: S Stand-sit: S GAIT Assistive Device: FWW Weight bearing: WBAT B Assist: SBA Distance: 100' x2 THEREX: Patient completed a bilateral LE strengthening and stabilization program, as per flow sheet. STAIRS: Up/down 6x4 and 4x6 using B rails and a step-over pattern with supervision. ASSESSMENT: Patient tolerated session well without complaint. He was able to tolerate stair training well, demonstrating good safety awareness, requiring minimal cueing for sequence. PLAN: Continue with PT's POC TREATMENT CODE/TIME: 30 minutes; 54626, [id number]
--- NOTE | 2018-06-19 15:10 | PTTR_ITS ---
Date of service: 06/19/18 Time of Service: 15:04 PT Notes Inpatient Physical Therapy Treatment Note [facility] Date: 06/19/18 PRECAUTIONS: Fall, WBAT B SUBJECTIVE: Adonis states that he is feeling pretty good this afternoon. He fe els that he is ready to return home today. OBJECTIVE: PAIN: No c/o pain BED MOBILITY/TRANSFERS Sit-stand: S Stand-sit: S GAIT Assistive Device: FWW Weight bearing: WBAT B Assist: SBA Distance: 100' x2 THEREX: Patient completed a bilateral LE strengthening and stabilization program, as per flow sheet. STAIRS: Up/down 6x4 and 4x6 using B rails and a step-over pattern with supervision. ASSESSMENT: Patient tolerated session well without complaint. He was able to tolerate stair training well, demonstrating good safety awareness, requiring minimal cueing for sequence. PLAN: Continue with PT's POC TREATMENT CODE/TIME: 30 minutes; [id number], [id number]
[2018-06-19 16:08] VITALS: BP 117/67; PULSE 67; RESP 18; TEMP 36.7; O2SAT 97
--- NOTE | 2018-06-19 16:15 | PT.INDS ---
Date of service: 06/19/18 Time of Service: 16:16 PT Notes Date: 06/19/18 Referring Doctor: Dr. Charles PT Orders: PT CONSULT: s/p bilat TKA Precautions: fall, standard Patient Profile/Admitting Diagnosis: Patient admitted after undergoing bilat TKA 06/18/18. He's participated in 2 PT sessions today. PMHX: current everyday smoker Social History/Home Situation: Patient lives in [place] with his and teenage son. He has 2 PRIMO, then single level. 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 Equipment Owned/DME: raised toilet seat, grab bars Subjective: Adonis states that he's feeling good and is feeling ready to go home. Objective: General Observation: Resting in chair with bilat cryocuffs. No lines. Mental Status: A&Ox3 Pain: patient reports stiffness R>L ROM: Right Upper Extremity: WFL Left Upper Extremity: WFL Right Lower Extremity: Hip ROM is WFL. Patient actively demonstrates -10 extension to 110 degrees flexion. Left Lower Extremity: Hip ROM is WFL. Patient actively demonstrates -10 extension to 120 degrees flexion. Strength: Right Upper Extremity: grossly 5/5 Left Upper Extremity: grossly 5/5 Right Lower Extremity: Quad strength at least 3/5. Functionally able to perform SLR without extension lag. Left Lower Extremity: Quad strength at least 3/5. Functionally able to perform SLR without extension lag. Sensation: Sensation intact distally Bed Mobility/Transfers: supine-sit: supervision sit-stand: supervision stand-sit: supervision Gait: Patient ambulates 100'x2 with WW, WBAT and CG. Stairs: Patient able to manage therapeutic stairs (6x4, 4x6) with bilat rail, supervision and reciprocal management. Balance: Static Sitting: Normal Dynamic Sitting: Normal Static Standing: Fair Dynamic Standing: Fair Treatment: Patient was seen briefly for a no-charge visit. He was able to verbalize understanding of his home program and his WW was fitted to appropriate height. Assessment: Patient is a 57 year old male referred to physical therapy services with the diagnosis of 1 day status post bilateral TKA. He has made significant gains in mobility and safety during 2 PT sessions today, and all rehab goals have been met. He is now appropriate for d/c from PT in acute care setting. Goals: Goals X1 week 1. Supine-Sit: Supervision (MET) 2. Sit-Supine : Supervision(MET) 3. Sit-Stand : Supervision(MET) 4. Stand-Sit : Supervision(MET) 5. Bed-Chair : Supervision with WW(MET) 6. Chair-Bed : Supervision with WW(MET) 7. Gait : Supervision with WW x 200'(MET) 8. Stairs : Patient able to acsend and descend (2) 6 inch stairs with bilateral upper extremity support and contact-guard(MET) 9. Independent with home exercise program (MET) Plan of Care/Treatment Plan: D/C from PT services in acute care setting. DISCHARGE RECOMMENDATIONS: Home with wheeled walker TREATMENT CODE/TIME: No charge (10 minutes)
== END 2018-06-19 16:55 | disposition home or self-care (01) | DRG 462 ==
LOC: PDS 07:41 → MS 11:39
PROVIDERS: Admitting Provider Student in an Organized Health Care Education/Training Program; PCP Internal Medicine; Visit Provider Student in an Organized Health Care Education/Training Program
PROC: 0SRD0J9 Replacement of Left Knee Joint with Synthetic Substitute, Cemented, Open Approach (ICD-10-PCS; CPT 27447; principal; 2018-06-18 07:30)
DX: M17.0 Bilateral primary osteoarthritis of knee (principal); M23.8X2 Other internal derangements of left knee; M23.8X1 Other internal derangements of right knee; M89.8X5 Other specified disorders of bone, thigh; Z96.653 Presence of artificial knee joint, bilateral
CPT/HCPCS: 27447; 36415; 76942; 80048; 85027; 97110; 97161; 97530; J1650; NC; J0690; J1100; J1885; J2250; J2405

== ENCOUNTER 2018-07-06 14:28 | Outpatient (CLI) | payer OTHER, SELFPAY ==
--- NOTE | 2018-07-06 14:25 | DI.RAD_ITS ---
SYMPTOM/DIAGNOSIS: BILAT KNEE DJD BILATERAL KNEES AND STANDING KNEES: In the right knee, there is a total knee replacement. The orthopedic hardware shows no evidence of failure. In the left knee, there is again seen a total knee replacement without evidence of failure. The bones appear intact. There are dystrophic calcifications seen of the posterior aspects of both knees. The right lower extremity measures 93.1 cm. The left lower extremity measures 92.8 cm. IMPRESSION: Bilateral TKR.
== END 2018-07-06 14:48 ==
PROVIDERS: PCP Internal Medicine; Visit Provider Student in an Organized Health Care Education/Training Program
DX: M17.0 Bilateral primary osteoarthritis of knee (principal); Z96.653 Presence of artificial knee joint, bilateral
CPT/HCPCS: 73560; 77073

== ENCOUNTER 2018-10-19 14:51 | Outpatient (CLI) | payer OTHER, SELFPAY ==
--- NOTE | 2018-10-19 14:42 | DI.RAD_ITS ---
SYMPTOMS/DIAGNOSIS: F/U BILATERAL TOTAL KNEE ARTHROPLASTY BILATERAL MERCHANT VIEWS: Merchant views of both knees were obtained and show normal patellofemoral relationship in a patient with bilateral TKR.
== END 2018-10-19 15:11 ==
PROVIDERS: PCP Internal Medicine; Visit Provider Physician Assistant
DX: Z96.653 Presence of artificial knee joint, bilateral (principal); Z47.1 Aftercare following joint replacement surgery
CPT/HCPCS: 73565

== ENCOUNTER 2019-05-24 15:15 | Outpatient (CLI) | payer OTHER, SELFPAY ==
--- NOTE | 2019-05-24 15:28 | DI.RAD_ITS ---
EXAM: XR KNEE LT 1V INDICATION: ANNUAL F/U. COMPARISON: XR standing alignment from 07/06/2018 XR knee LT 1V from 07/06/2018 XR KNEES MERCHANT ONLY from 10/19/2018 XR KNEE RT 1V from 05/24/2019 XR KNEE RT 1V from 05/24/2019 TECHNIQUE: 2D digital imaging was performed. FINDINGS: There has been no change in bilateral knee prostheses or surrounding. IMPRESSION:
--- NOTE | 2019-05-24 15:31 | DI.RAD_ITS ---
EXAM: XR STANDING ALIGNMENT INDICATION: ANNUAL F/U. COMPARISON: No exams were available for comparison TECHNIQUE: 2D digital imaging was performed. FINDINGS: The hip joint spaces are well maintained. The left femoral head projects 6 millimeters superior to t he right. There are bilateral knee prostheses. There are degenerative changes of the medial tibiotal ar joint. Ankle joint spaces are well maintained.
== END 2019-05-24 15:35 ==
PROVIDERS: PCP Internal Medicine; Visit Provider Student in an Organized Health Care Education/Training Program
DX: Z96.653 Presence of artificial knee joint, bilateral (principal); Z47.1 Aftercare following joint replacement surgery
CPT/HCPCS: 73560; 77073

== ENCOUNTER 2019-08-26 11:32 | Outpatient (CLI) | payer OTHER, SELFPAY ==
[2019-08-29 11:19] LABS: SARS-CoV-2 RNA Undetected (Undetected); SARS-CoV-2 Specimen Source Nasopharynx
== END 2019-08-26 11:52 ==
PROVIDERS: PCP Internal Medicine; Visit Provider Family Medicine
DX: Z11.59 Encounter for screening for other viral diseases (principal)
CPT/HCPCS: U0003

== ENCOUNTER 2021-07-22 18:55 | Emergency (ER) | payer BC, OTHER, SELFPAY ==
[2021-07-22 18:59] VITALS: BP 172/108; PULSE 88; RESP 16; TEMP 36.3; O2SAT 96
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
== END 2021-07-22 20:43 | disposition home or self-care (01) ==
PROVIDERS: Emergency Provider Physician Assistant; PCP Internal Medicine
DX: M54.2 Cervicalgia (principal); M54.9 Dorsalgia, unspecified; V43.52XA Car driver injured in collision with other type car in traffic accident, initial encounter; R68.89 Other general symptoms and signs
CPT/HCPCS: 99284; 70450; 72125; 99283

== ENCOUNTER 2024-08-05 17:18 | Inpatient (IN) | payer BC, SELFPAY ==
[2024-08-05] VITALS (85 sets, daily range): BP systolic 158–259; BP diastolic 72–145; PULSE 75–100; RESP 9–24; TEMP 36.4; O2SAT 95–99
--- NOTE | 2024-08-05 17:15 | RT.EKG_ITS ---
APPROVED REPORT Exam: Resting ECG Reason for Exam: chest pain Patient Location: E HR:87 bpm ECG Measurements Heart Rate 87 AXIS NJ 150 P 53 QRSd 150 QRS 86 QT 438 T 37 QTc 528 Conclusion Sinus rhythm. 87 normal axis RBBB no stemi
[2024-08-05] MEDS: amLODIPine 5 MG TAB 10 MG PO (17:46)
[2024-08-05 17:47] LABS: Abs Immature Grans 0.03 10^3/uL (0.0-0.06); Absolute Basophil Count 0.13 10^3/uL (0.0-0.2); Absolute Lymphocyte Count 3.38 10^3/uL (1.2-3.4); Absolute Monocyte Count 0.65 10^3/uL (0.1-0.8); Absolute Neutrophil Count 5.42 10^3/uL (1.2-6.7); Basophils % 1.3 %; Eosinophils % 4.9 %; HCT 48.5 % (40.0-50.0); HGB 16.1 g/dL (13.5-17.5); Immature Grans % 0.3 %; Lymphocytes % 33.4 %; MCH 30.9 pg (27.0-33.0); MCHC 33.2 % (32.0-36.0); MCV 93 fL (80-95); MPV 11.1 fL (8.0-11.0); Monocytes % 6.4 %; Neutrophils % 53.7 %; Platelet Count 235 10^3/uL (130-400); RBC 5.21 10^6/uL (4.36-5.78); RDW 13.3 % (11.8-14.1); RDW-SD 45.4 fL; WBC 10.11 10^3/uL (4.4-10.8)
[2024-08-05] MEDS: hydrALAZINE 20 MG/ML VIAL 10 MG IVP (17:47)
[2024-08-05 18:10] LABS: Hemoglobin A1C 5.6 % (<5.7)
[2024-08-05 18:12] LABS: ALT 30 U/L (16-63); AST 17 U/L (15-37); Albumin 3.9 g/dL (3.4-5.0); Alkaline Phosphatase 76 U/L (46-116); Anion Gap 9.7 mmol/L (3-11); BUN 19 mg/dL (7-18); Bilirubin, Total 0.4 mg/dL (0.2-1.0); CO2 27.3 mmol/L (21.0-32.0); CREATININE 1.2 mg/dL (0.70-1.30); Calcium 9.5 mg/dL (8.5-10.1); Chloride 106 mmol/L (98-107); Estimated GFR 68.38 (mL/min/1.73m2); Glucose 99 mg/dL (74-106); NT-proBNP 2843 pg/mL (<300); Potassium 3.8 mmol/L (3.5-5.1); Sodium 143 mmol/L (136-145); Total Protein 7.5 g/dL (6.4-8.2)
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
[2024-08-05 18:17] LABS: Troponin I 141 ng/L (<or=76)
[2024-08-05] MEDS: Furosemide 40 MG/4 ML VIAL IVP (18:32)
[2024-08-05] MEDS: Aspirin 325 MG TAB PO (18:33)
[2024-08-05] MEDS: Omnipaque 350 MG/ML 100 ML BTL IJ (18:33)
[2024-08-05] MEDS: niCARdipine 25 MG in Normal Saline 240 ML 50 MG IV (18:33)
[2024-08-05] MEDS: Normal Saline - Diluent 50 ML VIAL IJ (18:34)
[2024-08-05 18:56] LABS: Troponin I 129 ng/L (<or=76)
--- NOTE | 2024-08-05 19:50 | DI.VRAD_ITS ---
PROCEDURE INFORMATION: Exam: CTA Chest With Contrast CTA Abdomen and Pelvis With Contrast Exam date and time: 08/05/2024 18:51 Age: 63 years old Clinical indication: Screening exam; Other screening; Purpose: Eval for dissection TECHNIQUE: Imaging protocol: Computed tomographic angiography of the chest with contrast. Exam focused on the arteries. Computed tomographic angiography of the abdomen and pelvis with contrast. Exam focused on the arteries. 3D rendering (Not supervised by radiologist): MIP and/or 3D reconstructed images were created by the technologist. COMPARISON: CT HEAD CERVICAL SPINE WO 07/22/2021 19:48 FINDINGS: VASCULATURE: Pulmonary arteries: This study is not timed to assess the pulmonary arteries for patency. No significant enlargement. Aorta: Irregular calcified and noncalcified thoracic aortic atherosclerosis [id number] in severity without aneurysm or dissection. Moderate to severe irregular calcified and noncalcified abdominal aortic atherosclerosis without dissection; there is a minimal multifocal dilation which is not technically aneurysmal. Multiple small penetrating ulcers. Celiac trunk and mesenteric arteries: Mild chronic stenosis of celiac trunk. Moderate chronic stenosis of SMA primarily due to noncalcified atherosclerosis. Distal branches are patent. Renal arteries: Atherosclerosis of right and left renal arteries, moderate stenosis left renal artery ostium, somewhat irregular appearance of both renal arteries suggesting vasculitis. Right iliac arteries: Multifocal right iliac arterial atherosclerosis with multifocal mild stenosis. Left iliac arteries: Multifocal left iliac arterial atherosclerosis multifocal mild stenosis. CHEST: Lungs: The lungs appear hyperinflated. No airspace consolidation. Pleural spaces: No pneumothorax. No pleural effusion. Heart: Mild cardiomegaly, dilation of left ventricle and left atrium. ABDOMEN AND PELVIS: Liver: Heterogeneous fatty liver with multiple benign-appearing cysts and probable cysts. Gallbladder and biliary ducts: Cholelithiasis. Pancreas: No mass. No ductal dilation. Spleen: No splenomegaly. Adrenal glands: No mass. Kidneys and ureters: No solid mass. No hydronephrosis. Stomach and bowel: Colonic diverticulosis without diverticulitis. No focal pathology in the small bowel. Appendix: No evidence of appendicitis. Intraperitoneal space: No free air. No significant fluid collection. Urinary bladder: Mild probable chronic outlet obstructive changes of the urinary bladder. Reproductive: Mild prostatic enlargement. Lymph nodes: No enlarged lymph nodes. Bones/joints: Chronic bony findings including L5 pars defects. No acute fracture or subluxation. Soft tissues: Unremarkable. IMPRESSION: 1. No acute findings. 2. Renal artery findings suggest vasculitis. Multifocal atherosclerosis without aortic dissection. 3. Additional findings as described. Dictated and Authenticated by: Rufina Katz MD. Orderin Tara Wen MD
[2024-08-05 19:59] LABS: Bilirubin Negative (Negative); Blood Trace-intact (Negative); Clarity Clear (Clear); Glucose Negative (Negative); Ketones Negative (Negative); Leukocyte Esterase Negative (Negative); Nitrite Negative (Negative); Urobilinogen 0.2 mg/dL (Up to 0.2)
[2024-08-05 20:05] LABS: Bacteria Negative HPF (Negative); C & S Indicated? No; Crystals Negative HPF (Negative); Epithelial Cells Negative HPF (Negative); Mucus Negative (Negative); WBC Negative HPF (0-5)
--- NOTE | 2024-08-05 20:47 | ED.GENADUL_ITS ---
Discharge Plan Disposition Patient Disposition: Admit to [facility] Condition: Serious Discharge Details Chief Complaint: Chest Pain Clinical Impression: Hypertensive crisis, Elevated troponin, Elevated brain natriuretic peptide (BNP) level Primary Care Provider: None,None ED Provider: Arpita Pacheco Home Meds and New Rx's Prescriptions: No Action acetaminophen 500 mg capsule 1,000 mg PO Q8H PRN (Reason: pain) Qty: 90 3RF HPI General Date/Time Provider Initiated Documentation: 08/05/24 17:37 . Limitations to Documentation: no limitations . Information obtained by: patient . HPI Narrative: 63-year-old gentleman with out known past medical history presents for evaluation of elevated blood pressure. Patient reports that he has not been to the doctor in many years. He reports that about 5 weeks ago he went to a chiropractor for evaluation of some ongoing back discomfort. At that time he reports that the chiropractor told him that his blood pressure was elevated. He has not ever been on medication for his blood pressure. He reports that today he went [facility] for an eye evaluation and to get new eyeglasses and was told that his blood pressure was elevated and so he went to urgent care and then urgent care referred him to the emergency department. He reports that he has some intermittent headache, but no acute headache today. No chest pain or shortness of breath at this time. He does report over the last few months he has been having some symptoms that have been some chest pressure. He states that he felt like this was more of a burning sensation so he thought he was just having reflux every time he did any hard work like doing the wood for the winter or other manual labor activities around the house. He states that after he rested, these symptoms of pressure would resolve. He did not have any nausea vomiting or diaphoresis when he had the symptoms. He is a longtime smoker. He is unaware of any medical problems that he might have. Related Data Home Medications ?Medication ?Instructions ?Recorded ?Confirmed acetaminophen 500 mg capsule 1,000 mg (2 x 500 mg) PO Q8H PRN 06/19/18 08/05/24 pain #90 caps Previous Rx's ?Medication ?Instructions ?Recorded acetaminophen 500 mg capsule 1,000 mg (2 x 500 mg) PO Q8H PRN 06/19/18 pain #90 caps Allergies Allergy/AdvReac Type Severity Reaction Status Date / Time No Known Allergies Allergy Verified 08/05/24 17:32 General Stated Complaint: Chest Pain CIERRA: 3 Exam Narrative Exam Narrative: Review of Systems: All systems reviewed & are unremarkable except as noted in HPI and below Well-developed, no acute distress Hypertensive NCAT PERRL, normal conjunctiva RRR no murmur Unlabored respiratory effort clear bilaterally, no crackles Nondistended abdomen Extremities w/o edema no focal neurologic deficits Course Vital Signs Vital signs: Vital Signs Temperature 36.4 C 08/05/24 17:22 Pulse 89 08/05/24 17:22 Respiratory Rate 23 08/05/24 17:22 Blood Pressure 259/145 H 08/05/24 17:22 Pulse Oximetry 98 08/05/24 17:22 Temperature 36.4 C 08/05/24 17:22 Temperature Source Temporal Artery Scan 08/05/24 17:22 Pulse 85 08/05/24 20:01 Pulse 86 08/05/24 20:01 Respiratory Rate 18 08/05/24 20:01 Respiratory Effort Normal 08/05/24 17:30 Respiratory Depth Normal 08/05/24 17:30 Respiratory Pattern Normal 08/05/24 17:30 Blood Pressure 182/86 H 08/05/24 20:01 Blood Pressure Mean 121 08/05/24 20:01 Blood Pressure Position Sitting 08/05/24 17:22 Pulse Oximetry 96 08/05/24 20:01 Oxygen Delivery Method Room Air 08/05/24 17:22 Oxygen Flow Rate 0 08/05/24 17:22 Pain Level 0 08/05/24 17:22 Lab/Test Results Lab/Test Results: Laboratory Tests Range/Units 08/05/24 08/05/24 08/05/24 17:33 18:30 18:55 WBC (4.4-10.8) 10^3/uL 10.11 RBC (4.36-5.78) 10^6/uL 5.21 Hgb (13.5-17.5) g/dL 16.1 Hct (40.0-50.0) % 48.5 MCV (80-95) fL 93 MCH (27.0-33.0) pg 30.9 MCHC (32.0-36.0) % 33.2 RDW (11.8-14.1) % 13.3 Plt Count (130-400) 10^3/uL 235 MPV (8.0-11.0) fL 11.1 H Immature Gran % % 0.3 Neutrophils % % 53.7 Lymphocytes % % 33.4 Monocytes % % 6.4 Eosinophils % % 4.9 Basophils % % 1.3 Nucleated RBC % (0.0-0.3) % 0.0 Absolute Neutrophils (1.2-6.7) 10^3/uL 5.42 Absolute Lymphocytes (1.2-3.4) 10^3/uL 3.38 Absolute Monocytes (0.1-0.8) 10^3/uL 0.65 Absolute Eosinophils (0.0-0.7) 10^3/uL 0.50 Absolute Basophils (0.0-0.2) 10^3/uL 0.13 Sodium (136-145) mmol/L 143 Potassium (3.5-5.1) mmol/L 3.8 Chloride (98-107) mmol/L 106 Carbon Dioxide (21.0-32.0) mmol/L 27.3 Anion Gap (3-11) mmol/L 9.7 BUN (7-18) mg/dL 19 H Creatinine (0.70-1.30) mg/dL 1.2 Est GFR (CKD-EPI 2020) (mL/min/1.73m2) 68.38 Glucose (74-106) mg/dL 99 Hemoglobin A1c (<5.7) % 5.6 Calcium (8.5-10.1) mg/dL 9.5 Total Bilirubin (0.2-1.0) mg/dL 0.4 AST (15-37) U/L 17 ALT (16-63) U/L 30 Alkaline Phosphatase (46-116) U/L 76 Troponin I (<or=76) ng/L 141 H* 129 H* NT-Pro-B Natriuret Pep (<300) pg/mL 2843 H Total Protein (6.4-8.2) g/dL 7.5 Albumin (3.4-5.0) g/dL 3.9 Urine Color (Yellow) Yellow Urine Clarity (Clear) Clear Urine pH (5-8) 7.0 Ur Specific [place] (1.005-1.025) 1.020 Urine Protein (Neg-Trace) mg/dL 100 H Urine Ketones (Negative) mg/dL Negative Urine Blood (Negative) Trace-intact H Urine Nitrite (Negative) Negative Urine Bilirubin (Negative) Negative Urine Urobilinogen (Up to 0.2) mg/dL 0.2 Ur Leukocyte Esterase (Negative) Negative Urine RBC (0-2) HPF 3-5 H Urine WBC (0-5) HPF Negative Ur Epithelial Cells (Negative) HPF Negative Urine Crystals (Negative) HPF Negative Urine Bacteria (Negative) HPF Negative Urine Mucus (Negative) Negative Ur Culture Indicated? No Urine Glucose (Negative) mg/dL Negative Medical Decision Making Emergent evaluation of hypertension. Initial differential includes asymptomatic hypertension, hypertensive emergency, endorgan damage. The patient has not previously had a formal diagnosis of high blood pressure though it seems that his blood pressure has been elevated for quite some time. He has been having some stable exertional chest pain concerning for stable angina his EKG independently interpreted: Sinus 87 right bundle branch block, no acute ischemic changes. He is chest pain-free. Lab work obtained and there is elevation in his troponin. There is no prior troponin for comparison so it is unclear that this is an acute value, but given this elevation and his blood pressure, will start a Cardene drip for blood pressure control. Initial MAP 153 with a 25% reduction goal (=114). aspirin has been given. Patient is also noted that his BNP is significantly elevated. At this time he does not have any signs or symptoms concerning for volume overload or acute CHF. He does not have an echocardiogram in the system. Plan CTA to evaluate for aortic pathology was obtained. There is no acute dissection or aneurysm noted. The patient does not have any signs of rib fracture, pulmonary edema or consolidative process on CT imaging. Patient has been doing well on the Cardene drip with appropriate response in his blood pressure he has remained without chest pain. He does even report that his headache has improved. At this time the patient will be admitted for further inpatient workup and evaluation. Discussed with the hospitalist who will assume care. Quality:SDOH Health Related Social Needs: No Data to Display Critical Care Time Critical Care Time Critical Care Time: Yes Total Critical Care Time: 35 Attestation: CRITICAL CARE Upon my evaluation, this patient had a high probability of imminent or life- threatening deterioration due to hypertensive emergency which required my direct attention, intervention, and personal management. I have personally provided 35 minutes of critical care time exclusive of time spent on separately billable procedures. Time includes review of laboratory data, radiology results, discussion with consultants, and monitoring for potential decompensation. Interventions were performed as documented above [facility] All Active Problems (Updated 08/05/24 @ 20:56 by Arpita Pacheco MD) Elevated brain natriuretic peptide (BNP) level (Acute) Elevated troponin (Acute) Hypertensive crisis (Acute) Surgical History History of tonsillectomy and adenoidectomy History of total bilateral knee replacement (TKR) (06/18/18) DOS: 06/18/[address] Charles Social History Smoking/Tobacco Use Status: Current every day Tobacco Type: cigarettes Smoking packs per day: 0.5 Smoking cigarettes per day: 10.0 Smoking risk assessment performed?: Yes Alcohol Intake: never Drug use: Occasionally Substance use type: marijuana Housing: house Current gender identity: male Do you feel safe at home: Yes Do you feel safe in your relationship?: Yes
--- NOTE | 2024-08-05 21:37 | HPE_ITS ---
Date of service: 08/05/24 Time of Service: 21:37 Assessment and Plan Assessment and plan (1) Hypertensive crisis: Status: Acute Assessment and plan: Blood pressure is markedly elevated in the 230/130 range. He has responded to the Cardene drip. He has been started on amlodipine x 1 dose. Goal is to lower his mean arterial pressure by 25% and hold it there. (2) Elevated brain natriuretic peptide (BNP) level: Status: Acute Assessment and plan: BNP is markedly elevated at 2843. Renal function is off slightly with a creatinine of 1.2, BUN of 19. He may have an element of early heart failure given hypertensive crisis and widespread atherosclerotic lesions. Echocardiogram in the a.m. blood pressure control and will likely need cholesterol control as well. Check fasting lipid profile in the a.m. (3) Elevated troponin: Status: Acute Assessment and plan: EKG shows a sinus rhythm at 87 bpm. There are no acute ST to T changes. Normal axis with a right bundle branch block pattern. The description of throat fullness is suspicious for ischemia. Will continue to trend his troponins. He does not appear to have an acute coronary syndrome at this time. History of Present Illness History of Present Illness Chief Complaint: Malignant hypertension/elevated troponins Narrative: 63-year-old male that has no primary care provider. He was going to the chiropractor recently for some neck problems when his blood pressure was noted to be markedly elevated, 170/120 he thinks. Today he went to [facility] and mentioned that his blood pressure had been elevated. When they checked it it was 213/130, they referred him to [facility]. At [facility] his systolic was in the 230s. He did not have symptoms other than an intermittent headache. He was referred to the emergency room. In the emergency room he had mean arterial pressure as high as 185. He was given a dose of hydralazine and started on a Cardene drip titrated between 5 and 7.5 mg/h. His mean arterial pressure came down to 128. He got an oral dose of amlodipine. He had a CT chest abdomen and pelvis that did not show any evidence of aneurysm or dissection but he has multiple areas of atherosclerosis including around his renal arteries. He has fatty liver, cholelithiasis, diverticulosis. He is being admitted is an ICU patient on ER hold. Review of Systems Narrative: He is generally well. 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 He does a lot of walking. He notes recently he would get a full feeling in his chest up into his neck especially after eating. This would go away if he sat down for just 2 minutes. He thought it was like reflux. He has never had any prior cardiac problems. He underwent bilateral total knee replacements in 2019 without any problems. He smokes 1/2 pack/day but has not had any respiratory difficulties. He has never had a heart attack or other heart problems. He admits he has gained some weight lately with some increased abdominal girth. He admits he is not careful about his diet and consumes red meat regularly. Recently they have been having fish once a week. PFSH All Active Problems (Updated 08/05/24 @ 20:56 by Arpita Pacheco MD) Elevated brain natriuretic peptide (BNP) level (Acute) Elevated troponin (Acute) Hypertensive crisis (Acute) Surgical History History of tonsillectomy and adenoidectomy History of total bilateral knee replacement (TKR) (06/18/18) DOS: 06/18/[address] Charles Social History Smoking/Tobacco Use Status: Current every day Tobacco Type: cigarettes Smoking packs per day: 0.5 Smoking cigarettes per day: 10.0 Smoking risk assessment performed?: Yes Alcohol Intake: never Drug use: Occasionally Substance use type: marijuana Housing: house Current gender identity: male Do you feel safe at home: Yes Do you feel safe in your relationship?: Yes Meds Allergies and Home Medications Allergies Allergy/AdvReac Type Severity Reaction Status Date / Time No Known Allergies Allergy Verified 08/05/24 17:32 Home Medications ?Medication ?Instructions ?Recorded ?Confirmed ?Type acetaminophen 500 mg capsule 1,000 mg (2 x 500 mg) PO Q8H PRN 06/19/18 08/05/24 Rx pain #90 caps Exam Narrative Exam Narrative: On exam he is pleasant and in no apparent distress. He has a broad mustache and lower facial hair. His lung sounds are clear. His heart sounds are regular, he does not have a large PMI, no murmurs appreciated. His abdomen is slightly rounded with some mild obesity. There is no hepatospleno megaly palpable. There is no tenderness. The lower extremities are well-perfused and have no edema. He has well-healed TKR scars. Neurologically there is no focal deficits he is lucid and alert and coherent. Gross motor function appears normal. There is no tremor. There is no facial asymmetry. Results Imaging Additional studies: CT of chest abdomen and pelvis with contrast shows multiple areas of atherosclerosis including the renal arteries. There is there are no significant areas of aneurysm, no dissection. Labs 08/05/24 17:33 08/05/24 17:33 Labs: Laboratory Results - last 24 hr 08/05/24 08/05/24 08/05/24 17:33 18:30 18:55 WBC 10.11 RBC 5.21 Hgb 16.1 Hct 48.5 MCV 93 MCH 30.9 MCHC 33.2 RDW 13.3 Plt Count 235 MPV 11.1 H Immature Gran % 0.3 Neutrophils % 53.7 Lymphocytes % 33.4 Monocytes % 6.4 Eosinophils % 4.9 Basophils % 1.3 Nucleated RBC % 0.0 Absolute Neutrophils 5.42 Absolute Lymphocytes 3.38 Absolute Monocytes 0.65 Absolute Eosinophils 0.50 Absolute Basophils 0.13 Sodium 143 Potassium 3.8 Chloride 106 Carbon Dioxide 27.3 Anion Gap 9.7 BUN 19 H Creatinine 1.2 Est GFR (CKD-EPI 2020) 68.38 Glucose 99 Hemoglobin A1c 5.6 Calcium 9.5 Total Bilirubin 0.4 AST 17 ALT 30 Alkaline Phosphatase 76 Troponin I 141 H* 129 H* NT-Pro-B Natriuret Pep 2843 H Total Protein 7.5 Albumin 3.9 Urine Color Yellow Urine Clarity Clear Urine pH 7.0 Ur Specific [place] 1.020 Urine Protein 100 H Urine Ketones Negative Urine Blood Trace-intact H Urine Nitrite Negative Urine Bilirubin Negative Urine Urobilinogen 0.2 Ur Leukocyte Esterase Negative Urine RBC 3-5 H Urine WBC Negative Ur Epithelial Cells Negative Urine Crystals Negative Urine Bacteria Negative Urine Mucus Negative Ur Culture Indicated? No Urine Glucose Negative 08/05/24 20:45 WBC RBC Hgb Hct MCV MCH MCHC RDW Plt Count MPV Immature Gran % Neutrophils % Lymphocytes % Monocytes % Eosinophils % Basophils % Nucleated RBC % Absolute Neutrophils Absolute Lymphocytes Absolute Monocytes Absolute Eosinophils Absolute Basophils Sodium Potassium Chloride Carbon Dioxide Anion Gap BUN Creatinine Est GFR (CKD-EPI 2020) Glucose Hemoglobin A1c Calcium Total Bilirubin AST ALT Alkaline Phosphatase Troponin I Cancelled NT-Pro-B Natriuret Pep Total Protein Albumin Urine Color Urine Clarity Urine pH Ur Specific [place] Urine Protein Urine Ketones Urine Blood Urine Nitrite Urine Bilirubin Urine Urobilinogen Ur Leukocyte Esterase Urine RBC Urine WBC Ur Epithelial Cells Urine Crystals Urine Bacteria Urine Mucus Ur Culture Indicated? Urine Glucose Last Vital Signs Temp 36.4 C 08/05/24 17:22 Pulse 88 08/05/24 21:01 Resp 14 08/05/24 21:01 BP 195/98 H 08/05/24 21:01 Pulse Ox 97 08/05/24 21:01 Time Spent Time spent with Patient: 55-74 minutes Time was spent: preparing to see the patient(eg.review tests), obtaining and/or reviewing separately otained hiistory, ordering medications,tests, procedures, referring, communicating with other health respite care provider, indepentently interpreting results and counseling the patient
[2024-08-05 21:38] LABS: Troponin I 148 ng/L (<or=76)
[2024-08-05] MEDS: Normal Saline Flush 10 ML SYR IVP (22:13)
[2024-08-06] VITALS (167 sets, daily range): BP systolic 131–194; BP diastolic 67–105; PULSE 70–111; RESP 10–27; TEMP 37.3–37.5; O2SAT 93–98
[2024-08-06] MEDS: niCARdipine 25 MG in Normal Saline 240 ML 30 MG IV (01:36)
[2024-08-06 02:28] LABS: Troponin I 213 ng/L (<or=76)
[2024-08-06 05:53] LABS: Abs Immature Grans 0.03 10^3/uL (0.0-0.06); Absolute Eosinophil Count 0.53 10^3/uL (0.0-0.7); Absolute Lymphocyte Count 2.21 10^3/uL (1.2-3.4); Absolute Monocyte Count 0.77 10^3/uL (0.1-0.8); Absolute Neutrophil Count 8.33 10^3/uL (1.2-6.7); Basophils % 0.8 %; Eosinophils % 4.4 %; HCT 47.4 % (40.0-50.0); HGB 16.2 g/dL (13.5-17.5); Immature Grans % 0.3 %; Lymphocytes % 18.5 %; MCH 31.4 pg (27.0-33.0); MCHC 34.2 % (32.0-36.0); MCV 92 fL (80-95); Monocytes % 6.4 %; Neutrophils % 69.6 %; Platelet Count 236 10^3/uL (130-400); RBC 5.16 10^6/uL (4.36-5.78); RDW 13.2 % (11.8-14.1); RDW-SD 45.2 fL; WBC 11.97 10^3/uL (4.4-10.8)
[2024-08-06 06:14] LABS: ALT 28 U/L (16-63); AST 17 U/L (15-37); Albumin 3.8 g/dL (3.4-5.0); Alkaline Phosphatase 81 U/L (46-116); Anion Gap 9.4 mmol/L (3-11); BUN 20 mg/dL (7-18); Bilirubin, Total 0.6 mg/dL (0.2-1.0); CO2 27.6 mmol/L (21.0-32.0); CREATININE 1.3 mg/dL (0.70-1.30); Calcium 9.2 mg/dL (8.5-10.1); Chloride 104 mmol/L (98-107); Estimated GFR 62.11 (mL/min/1.73m2); Glucose 121 mg/dL (74-106); Potassium 3.7 mmol/L (3.5-5.1); Sodium 141 mmol/L (136-145); Total Protein 7.4 g/dL (6.4-8.2)
[2024-08-06 06:19] LABS: Troponin I 257 ng/L (<or=76)
[2024-08-06 06:27] LABS: Calculated LDL 226 mg/dL (<100); Cholesterol 303 mg/dL (<200); HDL Cholesterol 50 mg/dL (>or=40); Triglyceride 139 mg/dL (<150)
[2024-08-06] MEDS: Acetaminophen 325 MG TAB PO ×3 (08:03→20:40)
[2024-08-06] MEDS: Enoxaparin 40 MG/0.4 ML SYR SC (08:04)
[2024-08-06] MEDS: Nicotine 14 MG/24 HR PATCH TD (08:56)
[2024-08-06] MEDS: niCARdipine 25 MG in Normal Saline 240 ML 40 MG IV (09:15)
--- NOTE | 2024-08-06 09:30 | DI.US_ITS ---
APPROVED REPORT EXAM: Comprehensive 2D, Doppler, and color-flow Echocardiogram Patient Location: ER Room/Bed: 1 Loom Mechanic: Abdifatah Mckeon RDCS (AE) Indications: Hypertensive crisis, elevated BNP Other Information Study Quality: Adequate Conclusion Moderate to severe concentric left ventricular hypertrophy. Ejection fraction is 55%. There are no segmental wall motion abnormalities Normal right ventricular size and function Both atria are normal in size There is no structural or hemodynamically significant valvular disease Right ventricular systolic pressure could not be estimated Wall motion Left Ventricle The left ventricle is normal size. The overall left ventricular systolic function appears normal. Sev ere concentric left ventricular hypertrophy. There is normal LV segmental wall motion. Left ventricul ar filling pattern is normal for age. There is no ventricular septal defect visualized. LVEF is 55%. Right Ventricle The right ventricle is normal size. The right ventricular systolic function is normal. Atria The left atrium size is normal. The right atrium size is normal. The interatrial septum is intact wit h no evidence for an atrial septal defect. Aortic Valve The aortic valve is normal in structure. Aortic valve is trileaflet. There is no aortic valvular sten osis. No aortic regurgitation is present. Mitral Valve The mitral valve is normal in structure. No evidence of mitral valve stenosis. There is no mitral augustina ve regurgitation noted. Tricuspid Valve The tricuspid valve is normal in structure. There is no tricuspid valve stenosis. There is no tricusp id valve regurgitation noted. Pulmonic Valve The pulmonary valve is normal in structure. There is no pulmonic valvular stenosis. There is no pulmo hugo valvular regurgitation. Great Vessels The aortic root is normal in size. The ascending aorta is normal in size. Aortic arch is normal in ca liber. IVC is normal in size and collapses >50% with inspiration. Pericardium There is no pericardial effusion. 2D Dimensions IVSD d PLAX 1.78 cm M: 0.6-1.2 Ao Root d 3.22 cm M: 3.1 - 3.7 LVPW d PLAX 1.80 cm M: 0.6 - 1.2 Ao Asc Diam d 3.32 cm M: 2.6 - 3.4 LVID d PLAX 4.17 cm M: 4.2 - 5.8 LVDs 3.19 cm M: 2.5 - 4.0 LV EF Teichholz 47.2 % FS 23.36 % LV EDV (Teich) 77.1 mL LV ESV (Teich) 40.7 mL Stroke Vol Index (Teich) 19.22 M-Mode TAPSE 2.30 cm (M/F) >1.7 Auto EF LV EDV A4C 165.1 mL LV EDV A2C 154.8 mL LV EDV BP 165.5 mL LV ESV A4C 91.6 mL LV ESV A2C 87.4 mL LV ESV BP 91.4 mL LVEF(%) A4C 44.5 % LVEF(%) A2C 43.5 % LVEF(%) BP 44.8 % LV SV A4C 73.6 ml LV SV A2C 67.4 ml LV SV BP 74.1 ml LV CO A4C 6.2 L/min LV CO A2C 5.5 L/min LV CO BP 5.9 L/min HR A4C 84.31 BPM HR A2C 82.01 BPM LV EDV Index (BP) LA Volume LA Length A4C 4.0 cm LA Length A2C 4.7 cm LA Area A4C s 9.25 cm2 LA Area A2C s 13.98 cm2 LA Vol A4C A-L 17.97 mL LA Vol A2C A-L 35.43 mL LA Vol Biplane A-L 27.2 mL LA Vol/BSA A4C A-L LA Vol/BSA A2C A-L LA Vol/BSA BP A-L 14.4 mL/m2 LA Vol A4C MOD 16.9 mL LA Vol A2C MOD 32.9 mL LA Vol BP MOD 25.3 mL RA Volume RA Area A4C 7.7 cm2 RA ESV A4C (A-L) 12.2mL RA Vol/BSA A4C A-L RA Length A4C 4.2 cm RA ESV A4C (MOD) 12.4mL LV Diastology MV E' medial 0.063 (>0.07 m/s) MV E Vmax 0.68 (0.4-1.3 m/s) MV E/E' MED 10.76 (<14) MV A Vmax 1.05 (0.4-1.3 m/s) MV E' lateral 0.042 (>0.1 m/s) E/A Ratio 0.6 MV E/E' LAT 15.99 (<14) MV E' Average 0.053 m/s MV E/E'(average) 12.86 Aortic Valve AoV Vmax 1.59 m/s LVOT Vmax 1.28 m/s AoV Peak Grad 10.1 mmHg LVOT Peak Grad 6.5 mmHg AoV Area (Vmax) 2.48 cm2 LVOT VTI 0.213 m AoV VTI 0.276 m LVOT Mean Grad 3.1 mmHg AoV Mean Mario. 1.05 m/s LVOT SV 65.58 mL AoV Mean Grad 5.1 mmHg LVOT Diam s 1.95 cm AoV Area (VTI) 2.37 cm2 AV Regurg Peak Gr. 10.12 mmHg Velocity Ratio 0.81 Mitral Valve MV Vmax TIPS 1.01 m/s MV Mean Grad 1.5 (<2mmHg) MV VTI 0.205 m Pulmonary Valve PV Vmax 1.06 (0.5-1.5 m/s) PV Peak Grad 4.5 mmHg PV Mean Mario 0.74 m/s PV Mean Grad 2.5 mmHg Tricuspid Valve TV S' 0.17 m/s
[2024-08-06 10:01] LABS: Troponin I 277 ng/L (<or=76)
--- NOTE | 2024-08-06 11:00 | RT.EKG_ITS ---
APPROVED REPORT Exam: Resting ECG Reason for Exam: chest pain Patient Location: I HR:87 bpm ECG Measurements Heart Rate 87 AXIS TN 163 P 55 QRSd 147 QRS 71 QT 451 T 39 QTc 542 Conclusion Sinus rhythm...normal P axis, V-rate 60- 99 Right bundle branch block...QRSd>120, terminal axis(90,270)
[2024-08-06 12:37] LABS: Troponin I 323 ng/L (<or=76)
[2024-08-06] MEDS: niCARdipine 25 MG in Normal Saline 240 ML 75 MG IV (12:46)
[2024-08-06] MEDS: Normal Saline Flush 10 ML SYR IVP ×3 (14:01→20:40)
--- NOTE | 2024-08-06 14:33 | PDOC.CMIN ---
Date of service: 08/06/24 Time of Service: 14:33 Care Management Initial Assmt Initial Assessment Reason for Hospitalization: hypertensive crisis Functional Status/Living Situation Patient Presentation: Adonis was lying in bed when CM met with him; his , Mago, was by his side. Adonis stated that per MD, he has been accepted at [facility], and is likely going to transfer there tomorrow. He is agreeable to this plan. 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 He stated that he and his have five children and eight grandchildren. He reported that he is very independent at baseline, and was recently set up with a new PCP, Tara Jaime. He has his first appointment scheduled for August 23. He stated that he does not anticipate any need for services in the community at this time. CM will continue to follow. Town of Residence: [place] Resides with: Spouse (Amena) Significant Other/Family: Local Natural Supports: 5 children; 8 grandchilren Employment Status: Employed Instrumental Activities of Daily Living (ADLs): Independent Medications Medication Management: No Issues/Barriers identified Advance Directives Advance Directives: Do you have an Advance Directive: N 07/22/21 18:59 AD On File at [facility]: N 02/22/18 18:52 Date Asked 08/05/24 08/05/24 17:21 AD Date Reviewed COLST On File at [facility] COLST Date Scanned Code Status Resuscitation Status Full Code Insurance Coverage/Financial Issues Insurance: / Care Team Visit Care Team Role Provider Type None None Primary Care Provider NON-[facility] STAFF PHYSICIAN Arpita Pacheco MD Emergency Provider [facility] STAFF PHYSICIAN Duane Dominguez MD Admit Provider [facility] STAFF PHYSICIAN Attending Provider Discharge Potential Discharge Needs: Other (transfer to tertiary facility) Anticipated Barriers to Discharge: None Identified Patient/Family Education Needs: Review discharge instructions, discuss Ask Me Three Transportation: Private vehicle Plan: Anticipate Adonis will transfer to [facility] once a bed becomes available; he has been accepted, per report. He will transport via EMS, coordinated by RN supervisor grips. He will follow his discharge plan of care. CM will continue to follow. Social Determinants of Health Screening Social Determinants of Health last assessed: 08/06/24 Will the Patient Participate in the Screening?: Yes Do you worry about having a steady place to live?: no Problems where you live: no known problems In the past 12 months, have you had to go without electric, gas, oil or water in your home?: no Have you or anyone in your house had to go without enough food to eat?: no Has lack of transportation kept you from medical appointments or from doing things needed for daily living?: no Has anyone in your life made you feel unsafe or unsupported?: no How hard is it for you to pay for the very basics like food, housing, medical care, and heating? Would you say it is:: Not hard at all Do you want help finding or keeping work or a job?: I do not need or want help If for any reason you need help with day-to-day activities such as bathing, preparing meals, shopping, managing finances, etc., do you get the help you need?: I don?t need any help How often do you feel lonely or isolated from those around you?: Never Do you speak a language other than Sami at home?: No PFSH All Active Problems (Updated 08/05/24 @ 20:56 by Arpita Pacheco MD) Elevated brain natriuretic peptide (BNP) level (Acute) Elevated troponin (Acute) Hypertensive crisis (Acute) Surgical History History of tonsillectomy and adenoidectomy History of total bilateral knee replacement (TKR) (06/18/18) DOS: 06/18/[address] Charles Social History Smoking/Tobacco Use Status: Current every day Tobacco Type: cigarettes Smoking packs per day: 0.5 Smoking cigarettes per day: 10.0 Smoking risk assessment performed?: Yes Alcohol Intake: never Drug use: Occasionally Substance use type: marijuana Housing: house Current gender identity: male Do you feel safe at home: Yes Do you feel safe in your relationship?: Yes
[2024-08-06] MEDS: Clopidogrel 300 MG TAB PO (15:49)
[2024-08-06] MEDS: Lisinopril 10 MG TAB PO (15:50)
[2024-08-06] MEDS: niCARdipine 25 MG in Normal Saline 240 ML 50 MG IV (16:11)
[2024-08-06 16:27] LABS: PTT Activated 25.9 sec (20.6-30.2)
[2024-08-06 16:54] LABS: Troponin I 338 ng/L (<or=76)
[2024-08-06] MEDS: Heparin in 0.45% NaCl 25,000 UNIT/250 ML BAG 8.5 UNIT IVINF (17:01)
--- NOTE | 2024-08-06 17:29 | W.PM.PROGNOT ---
Date of Service Date of service: 08/06/24 Time of Service: 17:29 Assessment and Plan Assessment and plan (1) Hypertensive crisis: Status: Acute Assessment and plan: Blood pressure is markedly elevated in the 230/130 range. He has responded to the Cardene drip. He has been started on amlodipine x 1 dose. Goal is to lower his mean arterial pressure by 25% and hold it there. 08/05/24 cardizem drip is off. pt was been started on lisinopril and will add amlodipine. (2) Elevated brain natriuretic peptide (BNP) level: Status: Acute Assessment and plan: BNP is markedly elevated at 2843. Renal function is off slightly with a creatinine of 1.2, BUN of 19. He may have an element of early heart failure given hypertensive crisis and widespread atherosclerotic lesions. Echocardiogram in the a.m. blood pressure control and will likely need cholesterol control as well. Check fasting lipid profile in the a.m. 08/06/24 Don't see an order for an echo or a result. Will place (3) Elevated troponin: Status: Acute Assessment and plan: EKG shows a sinus rhythm at 87 bpm. There are no acute ST to T changes. Normal axis with a right bundle branch block pattern. The description of throat fullness is suspicious for ischemia. Will continue to trend his troponins. He does not appear to have an acute coronary syndrome at this time. 08.06.24 POC d/w Cardiology service [facility] who recommended loading dose plavix and heparin ACS protocol. Also recommended high dose statin and asa. Pt has been accepted to [facility] pending beds. Dr Muller attending Subjective Subjective Interval history since last seen: Pt seen and examined in his room this am. Pt did not have any new complaints and states that his jaw pain has resolved. He does complain of GERD after eating. I did d/w Cardiology service ([facility]) as well Exam Narrative Exam Narrative: On exam he is pleasant and in no apparent distress. He has a broad mustache and lower facial hair. His lung sounds are clear. His heart sounds are regular, he does not have a large PMI, no murmurs appreciated. His abdomen is slightly rounded with some mild obesity. There is no hepatospleno megaly palpable. There is no tenderness. The lower extremities are well-perfused and have no edema. He has well-healed TKR scars. Neurologically there is no focal deficits he is lucid and alert and coherent. Gross motor function appears normal. There is no tremor. There is no facial asymmetry. Objective Last Vital Signs Temp 37.5 C 08/06/24 17:18 Pulse 101 H 08/06/24 17:15 Resp 21 08/06/24 17:15 BP 163/94 H 08/06/24 17:15 Pulse Ox 94 08/06/24 17:01 Laboratory Results - last 24 hr 08/05/24 08/05/24 08/05/24 17:33 18:30 18:55 WBC 10.11 RBC 5.21 Hgb 16.1 Hct 48.5 MCV 93 MCH 30.9 MCHC 33.2 RDW 13.3 Plt Count 235 MPV 11.1 H Immature Gran % 0.3 Neutrophils % 53.7 Lymphocytes % 33.4 Monocytes % 6.4 Eosinophils % 4.9 Basophils % 1.3 Nucleated RBC % 0.0 Absolute Neutrophils 5.42 Absolute Lymphocytes 3.38 Absolute Monocytes 0.65 Absolute Eosinophils 0.50 Absolute Basophils 0.13 APTT Sodium 143 Potassium 3.8 Chloride 106 Carbon Dioxide 27.3 Anion Gap 9.7 BUN 19 H Creatinine 1.2 Est GFR (CKD-EPI 2020) 68.38 Glucose 99 Hemoglobin A1c 5.6 Calcium 9.5 Total Bilirubin 0.4 AST 17 ALT 30 Alkaline Phosphatase 76 Troponin I 141 H* 129 H* NT-Pro-B Natriuret Pep 2843 H Total Protein 7.5 Albumin 3.9 Triglycerides Total Cholesterol LDL Cholesterol, Calc HDL Cholesterol Urine Color Yellow Urine Clarity Clear Urine pH 7.0 Ur Specific [place] 1.020 Urine Protein 100 H Urine Ketones Negative Urine Blood Trace-intact H Urine Nitrite Negative Urine Bilirubin Negative Urine Urobilinogen 0.2 Ur Leukocyte Esterase Negative Urine RBC 3-5 H Urine WBC Negative Ur Epithelial Cells Negative Urine Crystals Negative Urine Bacteria Negative Urine Mucus Negative Ur Culture Indicated? No Urine Glucose Negative 08/05/24 08/05/24 08/06/24 20:45 21:12 02:03 WBC RBC Hgb Hct MCV MCH MCHC RDW Plt Count MPV Immature Gran % Neutrophils % Lymphocytes % Monocytes % Eosinophils % Basophils % Nucleated RBC % Absolute Neutrophils Absolute Lymphocytes Absolute Monocytes Absolute Eosinophils Absolute Basophils APTT Sodium Potassium Chloride Carbon Dioxide Anion Gap BUN Creatinine Est GFR (CKD-EPI 2020) Glucose Hemoglobin A1c Calcium Total Bilirubin AST ALT Alkaline Phosphatase Troponin I Cancelled 148 H* 213 H* NT-Pro-B Natriuret Pep Total Protein Albumin Triglycerides Total Cholesterol LDL Cholesterol, Calc HDL Cholesterol Urine Color Urine Clarity Urine pH Ur Specific [place] Urine Protein Urine Ketones Urine Blood Urine Nitrite Urine Bilirubin Urine Urobilinogen Ur Leukocyte Esterase Urine RBC Urine WBC Ur Epithelial Cells Urine Crystals Urine Bacteria Urine Mucus Ur Culture Indicated? Urine Glucose 08/06/24 08/06/24 08/06/24 05:46 09:28 11:55 WBC 11.97 H RBC 5.16 Hgb 16.2 Hct 47.4 MCV 92 MCH 31.4 MCHC 34.2 RDW 13.2 Plt Count 236 MPV 11.0 Immature Gran % 0.3 Neutrophils % 69.6 Lymphocytes % 18.5 Monocytes % 6.4 Eosinophils % 4.4 Basophils % 0.8 Nucleated RBC % 0.0 Absolute Neutrophils 8.33 H Absolute Lymphocytes 2.21 Absolute Monocytes 0.77 Absolute Eosinophils 0.53 Absolute Basophils 0.10 APTT Sodium 141 Potassium 3.7 Chloride 104 Carbon Dioxide 27.6 Anion Gap 9.4 BUN 20 H Creatinine 1.3 Est GFR (CKD-EPI 2020) 62.11 Glucose 121 H Hemoglobin A1c Calcium 9.2 Total Bilirubin 0.6 AST 17 ALT 28 Alkaline Phosphatase 81 Troponin I 257 H* 277 H* 323 H* NT-Pro-B Natriuret Pep Total Protein 7.4 Albumin 3.8 Triglycerides 139 Total Cholesterol 303 H LDL Cholesterol, Calc 226 H HDL Cholesterol 50 H Urine Color Urine Clarity Urine pH Ur Specific [place] Urine Protein Urine Ketones Urine Blood Urine Nitrite Urine Bilirubin Urine Urobilinogen Ur Leukocyte Esterase Urine RBC Urine WBC Ur Epithelial Cells Urine Crystals Urine Bacteria Urine Mucus Ur Culture Indicated? Urine Glucose 08/06/24 16:07 WBC RBC Hgb Hct MCV MCH MCHC RDW Plt Count MPV Immature Gran % Neutrophils % Lymphocytes % Monocytes % Eosinophils % Basophils % Nucleated RBC % Absolute Neutrophils Absolute Lymphocytes Absolute Monocytes Absolute Eosinophils Absolute Basophils APTT 25.9 Sodium Potassium Chloride Carbon Dioxide Anion Gap BUN Creatinine Est GFR (CKD-EPI 2020) Glucose Hemoglobin A1c Calcium Total Bilirubin AST ALT Alkaline Phosphatase Troponin I 338 H* NT-Pro-B Natriuret Pep Total Protein Albumin Triglycerides Total Cholesterol LDL Cholesterol, Calc HDL Cholesterol Urine Color Urine Clarity Urine pH Ur Specific [place] Urine Protein Urine Ketones Urine Blood Urine Nitrite Urine Bilirubin Urine Urobilinogen Ur Leukocyte Esterase Urine RBC Urine WBC Ur Epithelial Cells Urine Crystals Urine Bacteria Urine Mucus Ur Culture Indicated? Urine Glucose Time Spent with Patient Time Spent with Patient: 35-49 minutes Time was spent: preparing to see the patient(eg.review tests), obtaining and/or reviewing separately otained hiistory, ordering medications,tests, procedures, referring, communicating with other health intensive care anaesthetist, indepentently interpreting results, counseling the patient and care coordination
[2024-08-06] MEDS: Atorvastatin 40 MG TAB 80 MG PO (20:40)
[2024-08-06 23:29] LABS: PTT Activated 34.5 sec (20.6-30.2)
[2024-08-07] VITALS (22 sets, daily range): BP systolic 136–168; BP diastolic 83–106; PULSE 63–86; RESP 9–25; TEMP 36.6; O2SAT 95–98
[2024-08-07 06:22] LABS: PTT Activated 61.7 sec (20.6-30.2)
[2024-08-07] MEDS: Heparin in 0.45% NaCl 25,000 UNIT/250 ML BAG 11.5 UNIT IVINF (06:46)
[2024-08-07] MEDS: Lisinopril 10 MG TAB PO (08:18)
[2024-08-07] MEDS: amLODIPine 10 MG TAB PO (08:18)
[2024-08-07] MEDS: Aspirin 81 MG CHEW PO (08:18)
[2024-08-07] MEDS: Normal Saline Flush 10 ML SYR IVP ×2 (08:19→20:26)
[2024-08-07 09:11] LABS: Troponin I 339 ng/L (<or=76)
[2024-08-07 13:35] LABS: PTT Activated 43.2 sec (20.6-30.2)
[2024-08-07] MEDS: Nicotine 14 MG/24 HR PATCH TD (13:37)
--- NOTE | 2024-08-07 17:42 | W.PM.PROGNOT ---
Date of Service Date of service: 08/07/24 Time of Service: 17:43 Assessment and Plan Assessment and plan (1) Hypertensive crisis: Status: Acute Assessment and plan: Blood pressure is markedly elevated in the 230/130 range. He has responded to the Cardene drip. He has been started on amlodipine x 1 dose. Goal is to lower his mean arterial pressure by 25% and hold it there. 08/05/24 cardizem drip is off. pt was been started on lisinopril and will add amlodipine. 08/06/24 Titrate meds as necessary (2) Elevated brain natriuretic peptide (BNP) level: Status: Acute Assessment and plan: BNP is markedly elevated at 2843. Renal function is off slightly with a creatinine of 1.2, BUN of 19. He may have an element of early heart failure given hypertensive crisis and widespread atherosclerotic lesions. Echocardiogram in the a.m. blood pressure control and will likely need cholesterol control as well. Check fasting lipid profile in the a.m. 08/06/24 Don't see an order for an echo or a result. Will place (3) Elevated troponin: Status: Acute Assessment and plan: EKG shows a sinus rhythm at 87 bpm. There are no acute ST to T changes. Normal axis with a right bundle branch block pattern. The description of throat fullness is suspicious for ischemia. Will continue to trend his troponins. He does not appear to have an acute coronary syndrome at this time. 08.06.24 POC d/w Cardiology service [facility] who recommended loading dose plavix and heparin ACS protocol. Also recommended high dose statin and asa. Pt has been accepted to [facility] pending beds. Dr Muller attending Subjective Subjective Interval history since last seen: no new complaints except being hungry Exam Narrative Exam Narrative: On exam he is pleasant and in no apparent distress. He has a broad mustache and lower facial hair. His lung sounds are clear. His heart sounds are regular, he does not have a large PMI, no murmurs appreciated. His abdomen is slightly rounded with some mild obesity. There is no hepatospleno megaly palpable. There is no tenderness. The lower extremities are well-perfused and have no edema. He has well-healed TKR scars. Neurologically there is no focal deficits he is lucid and alert and coherent. Gross motor function appears normal. There is no tremor. There is no facial asymmetry. Objective Last Vital Signs Temp 37.4 C 08/06/24 22:01 Pulse 80 08/07/24 13:01 Resp 18 08/07/24 13:01 BP 143/89 H 08/07/24 13:01 Pulse Ox 96 08/07/24 13:01 Laboratory Results - last 24 hr 08/06/24 08/06/24 08/07/24 21:00 23:02 05:42 APTT Cancelled 34.5 H 61.7 H Troponin I 08/07/24 08/07/24 08:18 13:13 APTT 43.2 H Troponin I 339 H* Time Spent with Patient Time Spent with Patient: 25-34 minutes Time was spent: preparing to see the patient(eg.review tests), obtaining and/or reviewing separately otained hiistory, ordering medications,tests, procedures, referring, communicating with other health pharmacist critical care, indepentently interpreting results, counseling the patient and care coordination
[2024-08-07] MEDS: Atorvastatin 40 MG TAB 80 MG PO (20:26)
[2024-08-07 20:33] LABS: PTT Activated 51.1 sec (20.6-30.2)
[2024-08-07 20:40] LABS: Magnesium 2.1 mg/dL
--- NOTE | 2024-08-07 21:04 | NUR.NOTE ---
This HS arranged transport to tertiary facility ([facility] from our ICU after bed availability confirmed. I, as acting house mover spoke with transfer center requesting transport. I had to use the ER phone. I accessed pt chart under community coordinator computer (Yvonne) who was logged on due to urgency of information requested by [facility]. This chart was accessed by me for means of quick transfer and availability of meditec. I was the only person in chart from ER. This is noted in compliance with HIPPA regulation purposes only. [facility] confirmed information and is en route to transport patient with arrival time of 2130 hours.
--- NOTE | 2024-08-07 21:44 | W.PM.DS.N ---
Date of service: 08/07/24 Time of Service: 21:44 DS: Diagnosis Discharge Diagnosis (1) Hypertensive crisis: Status: Acute (2) Elevated brain natriuretic peptide (BNP) level: Status: Acute (3) Elevated troponin: Status: Acute Discharge Plan Disposition Patient Disposition: Transfer-Acute Inpatient Care Specific Acute Inpt Facility: [facility] Condition: Stable Discharge Details Reason For Visit: Very High BP Admit Date/Time: 08/05/24 20:10 Admit Provider: Duane Dominguez Attending Provider: Duane Dominguez Primary Care Provider: None,None Hospital Course Hospital Course: 63 yo male presented to the ED due to elevated blood pressure during an eye appointment, he was initially referred to urgent care and from there to the ED. Details on the presenting concerns as well as the initial plan are copied below from H and P. From admit note: Assessment and plan (1) Hypertensive crisis: Status: Acute Assessment and plan: Blood pressure is markedly elevated in the 230/130 range. He has responded to the Cardene drip. He has been started on amlodipine x 1 dose. Goal is to lower his mean arterial pressure by 25% and hold it there. (2) Elevated brain natriuretic peptide (BNP) level: Status: Acute Assessment and plan: BNP is markedly elevated at 2843. Renal function is off slightly with a creatinine of 1.2, BUN of 19. He may have an element of early heart failure given hypertensive crisis and widespread atherosclerotic lesions. Echocardiogram in the a.m. blood pressure control and will likely need cholesterol control as well. Check fasting lipid profile in the a.m. (3) Elevated troponin: Status: Acute Assessment and plan: EKG shows a sinus rhythm at 87 bpm. There are no acute ST to T changes. Normal axis with a right bundle branch block pattern. The description of throat fullness is suspicious for ischemia. Will continue to trend his troponins. He does not appear to have an acute coronary syndrome at this time. History of Present Illness History of Present Illness Chief Complaint: Malignant hypertension/elevated troponins Narrative: 63-year-old male that has no primary care provider. He was going to the chiropractor recently for some neck problems when his blood pressure was noted to be markedly elevated, 170/120 he thinks. [facility] and mentioned that his blood pressure had been elevated. When they checked it it was 213/130, they referred him to [facility]. At [facility] his systolic was in the 230s. He did not have symptoms other than an intermittent headache. He was referred to the emergency room. In the emergency room he had mean arterial pressure as high as 185. He was given a dose of hydralazine and started on a Cardene drip titrated between 5 and 7.5 mg/h. His mean arterial pressure came down to 128. He got an oral dose of amlodipine. He had a CT chest abdomen and pelvis that did not show any evidence of aneurysm or dissection but he has multiple areas of atherosclerosis including around his renal arteries. He has fatty liver, cholelithiasis, diverticulosis. He is being admitted is an ICU patient on ER hold. Review of Systems Narrative: He is generally well. 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 He does a lot of walking. He notes recently he would get a full feeling in his chest up into his neck especially after eating. This would go away if he sat down for just 2 minutes. He thought it was like reflux. He has never had any prior cardiac problems. He underwent bilateral total knee replacements in 2019 without any problems. He smokes 1/2 pack/day but has not had any respiratory difficulties. He has never had a heart attack or other heart problems. He admits he has gained some weight lately with some increased abdominal girth. He admits he is not careful about his diet and consumes red meat regularly. Recently they have been having fish once a week. Home Meds and New Rx's Prescriptions: No Action acetaminophen 500 mg capsule 1,000 mg PO Q8H PRN (Reason: pain) Qty: 90 3RF DS: Summary Quality:[facility] Health Related Social Needs: No Data to Display DS: Data Vitals/I&O Vitals and I&O: Vital Signs Temperature 36.6 C 08/07/24 19:45 Temperature Source Temporal Artery Scan 08/07/24 19:45 Pulse 85 08/07/24 18:01 Pulse 86 08/07/24 18:01 Respiratory Rate 18 08/07/24 18:01 Respiratory Effort Normal, Non-Labored 08/06/24 13:38 Respiratory Depth Normal 08/06/24 13:38 Respiratory Pattern Normal 08/06/24 13:38 Blood Pressure 162/101 H 08/07/24 18:01 Blood Pressure Mean 118 03/22/25 18:01 Blood Pressure Position Supine 08/06/24 13:38 Pulse Oximetry 96 08/07/24 18:01 Oxygen Delivery Method Room Air 08/07/24 19:45 Oxygen Flow Rate 0 08/07/24 19:45 Pain Level 0 08/06/24 21:40 Comment prior to my shift 08/07/24 07:01 Intake & Output 08/06/24 08/07/24 08/07/24 23:59 11:59 23:59 Intake Total 525.292 / 980.459 80.5 / 560.617 480.117 / 560.617 Output Total 1325 / 2075 400 / 850 450 / 850 Balance -799.708 / -1094.541 -319.5 / -289.383 30.117 / -289.383 Weight 73.5 kg 75 kg Intake: IV 525.292 / 980.459 80.5 / 160.617 80.117 / 160.617 Oral 400 / 400 Output: Urine 1325 / 2075 400 / 850 450 / 850 Other: Urine Color Light Basilia Pale Pale Light Basilia Urine Appearance Clear Clear Clear Urine Odor Normal Normal Comment using urinal Stool Size Large Stool Characteristics Formed Data Completed and Pending Labs on day of discharge: Labs from last 24 hours 08/07/24 08/07/24 08/07/24 20:00 13:13 08:18 APTT 51.1 H 43.2 H Magnesium 2.1 Troponin I 339 H* 08/07/24 08/06/24 05:42 23:02 APTT 61.7 H 34.5 H Magnesium Troponin I PFSH All Active Problems (Updated 08/05/24 @ 20:56 by Arpita Pacheco MD) Elevated brain natriuretic peptide (BNP) level (Acute) Elevated troponin (Acute) Hypertensive crisis (Acute) Surgical History History of tonsillectomy and adenoidectomy History of total bilateral knee replacement (TKR) (06/18/18) DOS: 06/18/[address] Charles Social History Smoking/Tobacco Use Status: Current every day Tobacco Type: cigarettes Smoking packs per day: 0.5 Smoking cigarettes per day: 10.0 Smoking risk assessment performed?: Yes Alcohol Intake: never Drug use: Occasionally Substance use type: marijuana Housing: house Current gender identity: male Do you feel safe at home: Yes Do you feel safe in your relationship?: Yes
[2024-08-07] MEDS: Heparin in 0.45% NaCl 25,000 UNIT/250 ML BAG 13 UNIT IVINF (21:50)
--- NOTE | 2024-08-07 21:51 | DSE_ITS ---
Date of service: 08/07/24 Time of Service: 22:16 DS: Diagnosis Discharge Diagnosis (1) Hypertensive crisis: Status: Acute (2) Elevated brain natriuretic peptide (BNP) level: Status: Acute (3) Elevated troponin: Status: Acute Discharge Plan Disposition Patient Disposition: Transfer-Acute Inpatient Care Specific Acute Inpt Facility: [facility] Condition: Stable Discharge Details Reason For Visit: Very High BP Admit Date/Time: 08/05/24 20:10 Admit Provider: Duane Dominguez Attending Provider: Duane Dominguez Primary Care Provider: None,None Hospital Course Hospital Course: 63 yo male presented to the ED due to elevated blood pressure during an eye appointment, he was initially referred to urgent care and from there to the ED. Details on the presenting concerns as well as the initial plan are copied below from H and P. This patient was accepted for transfer to [facility] prior to my arrival on the evening shift, there have been no significant issues since I assumed his care. A bed became available and transport is currently pending. I have not seen or evaluated this patient and the below information was gathered from the EMR as transport is imminent. Plan per today's PN (1) Hypertensive crisis: Status: Acute Assessment and plan: Blood pressure is markedly elevated in the 230/130 range. He has responded to the Cardene drip. He has been started on amlodipine x 1 dose. Goal is to lower his mean arterial pressure by 25% and hold it there. 08/05/24 cardizem drip is off. pt was been started on lisinopril and will add amlodipine. 08/06/24 Titrate meds as necessary (2) Elevated brain natriuretic peptide (BNP) level: Status: Acute Assessment and plan: BNP is markedly elevated at 2843. Renal function is off slightly with a creatinine of 1.2, BUN of 19. He may have an element of early heart failure given hypertensive crisis and widespread atherosclerotic lesions. Echocardiogram in the a.m. blood pressure control and will likely need cholesterol control as well. Check fasting lipid profile in the a.m. 08/06/24 Don't see an order for an echo or a result. Will place (3) Elevated troponin: Status: Acute Assessment and plan: EKG shows a sinus rhythm at 87 bpm. There are no acute ST to T changes. Normal axis with a right bundle branch block pattern. The description of throat fullness is suspicious for ischemia. Will continue to trend his troponins. He does not appear to have an acute coronary syndrome at this time. 08.06.24 POC d/w Cardiology service [facility] who recommended loading dose plavix and heparin ACS protocol. Also recommended high dose statin and asa. Pt has been accepted to [facility] pending beds. Dr Muller attending Additional information: In regards to (1) above: BP has improved, still with some elevated diastolics of around 100, could consider engaging vascular to determine if renal artery stenosis could be cont ributing to elevated BP. CTA chest//abdomen/pelvis 08/05/24 IMPRESSION: No evidence of aortic dissection. Moderate atherosclerotic changes of the greater in the vasculature of abdomen. Multiple focal atherosclerotic plaque causing moderate narrowing of the abdominal aortic lumen. Moderate stenosis of the proximal right left renal artery. Mild beaded appearance of the renal arteries could indicate vasculitis. In regards to (2,3) above: Echo yesterday (08/06) with Moderate to severe concentric left ventricular hypertrophy. Ejection fraction is 55%. There are no segmental wall motion abnormalities. otherwise unremarkable. He has been maintaining normal O2 sats on RA with no respiratory distress. Troponin increased from 277 to 338 yesterday and is stable at 338 today, he reportedly remained symptom free. From admit note: Assessment and plan (1) Hypertensive crisis: Status: Acute Assessment and plan: Blood pressure is markedly elevated in the 230/130 range. He has responded to the Cardene drip. He has been started on amlodipine x 1 dose. Goal is to lower his mean arterial pressure by 25% and hold it there. (2) Elevated brain natriuretic peptide (BNP) level: Status: Acute Assessment and plan: BNP is markedly elevated at 2843. Renal function is off slightly with a creatinine of 1.2, BUN of 19. He may have an element of early heart failure given hypertensive crisis and widespread atherosclerotic lesions. Echocardiogram in the a.m. blood pressure control and will likely need cholesterol control as well. Check fasting lipid profile in the a.m. (3) Elevated troponin: Status: Acute Assessment and plan: EKG shows a sinus rhythm at 87 bpm. There are no acute ST to T changes. Normal axis with a right bundle branch block pattern. The description of throat fullness is suspicious for ischemia. Will continue to trend his troponins. He does not appear to have an acute coronary syndrome at this time. History of Present Illness History of Present Illness Chief Complaint: Malignant hypertension/elevated troponins Narrative: 63-year-old male that has no primary care provider. He was going to the chiropractor recently for some neck problems when his blood pressure was noted to be markedly elevated, 170/120 he thinks. Today he went to [facility] and mentioned that his blood pressure had been elevated. When they checked it it was 213/130, they referred him to [facility]. At [facility] his systolic was in the 230s. He did not have symptoms other than an intermittent headache. He was referred to the emergency room. In the emergency room he had mean arterial pressure as high as 185. He was given a dose of hydralazine and started on a Cardene drip titrated between 5 and 7.5 mg/h. His mean arterial pressure came down to 128. He got an oral dose of amlodipine. He had a CT chest abdomen and pelvis that did not show any evidence of aneurysm or dissection but he has multiple areas of atherosclerosis including around his renal arteries. He has fatty liver, cholelithiasis, diverticulosis. He is being admitted is an ICU patient on ER hold. Review of Systems Narrative: He is generally well. 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 He does a lot of walking. He notes recently he would get a full feeling in his chest up into his neck especially after eating. This would go away if he sat down for just 2 minutes. He thought it was like reflux. He has never had any prior cardiac problems. He underwent bilateral total knee replacements in 2019 without any problems. He smokes 1/2 pack/day but has not had any respiratory difficulties. He has never had a heart attack or other heart problems. He admits he has gained some weight lately with some increased abdominal girth. He admits he is not careful about his diet and consumes red meat regularly. Recently they have been having fish once a week. Home Meds and New Rx's Prescriptions: No Action acetaminophen 500 mg capsule 1,000 mg PO Q8H PRN (Reason: pain) Qty: 90 3RF Discharge Instructions Activity:: Activity as Tolerated Equipment/Supplies:: No Equipment Needed Diet:: As Tolerated DS: Summary Time Spent with Patient providing and/or coordinating discharge services: Greater than 30 minutes Status at Discharge Functional status at discharge: independent ambulation Overall status at discharge: patient is back to baseline Mental Status: mental status grossly normal Speech and Movement: speech and movement normal Mood: congruent mood Affect: normal affect Quality:SDOH Health Related Social Needs: No Data to Display Exam Psych Mental Status: mental status grossly normal Speech and Movement: speech and movement normal Mood: congruent mood Affect: normal affect DS: Data Vitals/I&O Vitals and I&O: Vital Signs Temperature 36.6 C 08/07/24 19:45 Temperature Source Temporal Artery Scan 08/07/24 19:45 Pulse 85 08/07/24 18:01 Pulse 86 08/07/24 18:01 Respiratory Rate 18 08/07/24 18:01 Respiratory Effort Normal, Non-Labored 08/06/24 13:38 Respiratory Depth Normal 08/06/24 13:38 Respiratory Pattern Normal 08/06/24 13:38 Blood Pressure 162/101 H 08/07/24 18:01 Blood Pressure Mean 118 08/07/24 18:01 Blood Pressure Position Supine 08/06/24 13:38 Pulse Oximetry 96 08/07/24 18:01 Oxygen Delivery Method Room Air 08/07/24 19:45 Oxygen Flow Rate 0 08/07/24 19:45 Pain Level 0 08/06/24 21:40 Comment prior to my shift 08/07/24 07:01 Intake & Output 08/06/24 08/07/24 08/07/24 23:59 11:59 23:59 Intake Total 525.292 / 980.459 80.5 / 560.617 480.117 / 560.617 Output Total 1322074 400 / 850 450 / 850 Balance -799.708 / -1094.541 -319.5 / -289.383 30.117 / -289.383 Weight 73.5 kg 75 kg Intake: IV 525.292 / 980.459 80.5 / 160.617 80.117 / 160.617 Oral 400 / 400 Output: Urine 1325 / 2075 400 / 850 450 / 850 Other: Urine Color Light Basilia Pale Pale Light Basilia Urine Appearance Clear Clear Clear Urine Odor Normal Normal Comment using urinal Stool Size Large Stool Characteristics Formed Data Completed and Pending Labs on day of discharge: Labs from last 24 hours 08/07/24 08/07/24 08/07/24 20:00 13:13 08:18 APTT 51.1 H 43.2 H Magnesium 2.1 Troponin I 339 H* 08/07/24 08/06/24 05:42 23:02 APTT 61.7 H 34.5 H Magnesium Troponin I PFSH All Active Problems (Updated 08/05/24 @ 20:56 by Arpita Pacheco MD) Elevated brain natriuretic peptide (BNP) level (Acute) Elevated troponin (Acute) Hypertensive crisis (Acute) Surgical History History of tonsillectomy and adenoidectomy History of total bilateral knee replacement (TKR) (06/18/18) DOS: 06/18/[address] Charles Social History Smoking/Tobacco Use Status: Current every day Tobacco Type: cigarettes Smoking packs per day: 0.5 Smoking cigarettes per day: 10.0 Smoking risk assessment performed?: Yes Alcohol Intake: never Drug use: Occasionally Substance use type: marijuana Housing: house Current gender identity: male Do you feel safe at home: Yes Do you feel safe in your relationship?: Yes Time Spent with Patient Time Spent with Patient: <45 minutes Time was spent: obtaining and/or reviewing separately otained hiistory and care coordination
== END 2024-08-07 22:00 | disposition short-term general hospital (02) | DRG 305 ==
LOC: ER 20:56 → EDHOLD 22:04 → ICU 08-06 13:24
PROVIDERS: Family Medicine; Admitting Provider Family Medicine; Emergency Provider Emergency Medicine; Responsible Provider Hospitalist; Visit Provider Family Medicine
DX: I16.9 Hypertensive crisis, unspecified (principal); I10 Essential (primary) hypertension; R74.8 Abnormal levels of other serum enzymes; I45.10 Unspecified right bundle-branch block; R07.89 Other chest pain; F17.210 Nicotine dependence, cigarettes, uncomplicated; I70.91 Generalized atherosclerosis; Z96.653 Presence of artificial knee joint, bilateral; Z79.899 Other long term (current) drug therapy
CPT/HCPCS: 00123; 36415; 71275; 80053; 80061; 93005; 96365; 96366; 96375; 99291; J1650; 74174; 81003; 81015; 83036; 83735; 83880; 84484; 85025; 85730; 93010; 93306; 99223; 99233; 99239; J0360; J1644; J1940; J2404; J3490

== ENCOUNTER 2025-03-11 06:45 | Day surgery (SDC) | payer BC, SELFPAY ==
[2025-03-11 07:17] VITALS: BP 99/73; PULSE 78; RESP 14; TEMP 36.3; O2SAT 99
[2025-03-11] MEDS: Lactated Ringers 1,000 ML 80 ML IV (07:27)
--- NOTE | 2025-03-11 07:45 | W.ANESPRE ---
General Info Date of Service Date Performed: 03/11/25 Height: 5 ft 9 in Weight: 77 kg Body Mass Index (BMI): 25.0 Surgical Procedure: Operation Date: 03/11/25 08:20 Proposed Procedure Side Surgeon ruiz Call MD Meds Allergies and Home Medications Allergies Allergy/AdvReac Type Severity Reaction Status Date / Time No Known Allergies Allergy Verified 03/11/25 07:03 Home Medication ?Medication ?Instructions ?Recorded acetaminophen 500 mg capsule 1,000 mg (2 x 500 mg) PO Q8H PRN 06/19/18 pain #90 caps aspirin 81 mg tablet 81 mg PO DAILY 10/25/24 atorvastatin 80 mg tablet 80 mg PO DAILY 10/25/24 carvedilol 25 mg tablet 25 mg PO BID 10/25/24 clopidogrel 75 mg tablet 75 mg PO DAILY 10/25/24 glipizide 10 mg tablet, extended 10 mg PO DAILY 10/25/24 release 24 hr losartan 100 mg tablet 100 mg PO DAILY 10/25/24 nicotine 1 patch transdermal DAILY 10/25/24 21mg/24hr-14mg/24hr-7mg/24hr daily transderm patches,sequentl nitroglycerin 0.4 mg sublingual 0.4 mg sublingual Q5M PRN 10/25/24 tablet ofloxacin 0.3 % ear drops 10 drp otic (ear) DAILY 10/25/24 bisacodyl 5 mg tablet,delayed 5 mg PO ONCE #4 tabs 02/24/25 release (Dulcolax (bisacodyl)) polyethylene glycol 3350 17 17 g PO ONCE #238 grams 02/24/25 gram/dose oral powder Current Visit Medications: Current Medications Generic Name Dose Route Start Last Admin Trade Name Freq PRN Reason Stop Dose Admin Ringer's Solution 1,000 mls @ 80 mls/hr 03/11/25 06:00 03/11/25 07:27 IV 03/11/25 23:59 80 mls/hr INFUSION RANULFO Administration IV Miscellaneous Supplies 1 each 03/11/25 06:00 Iv Access IV 03/11/25 23:59 DIRECTED RANULFO Sodium Biphosphate/Sodium Phosphate 133 ml 03/11/25 06:00 Na Phosphate Enema-Adult 133 Ml Btl [place] 03/11/25 23:59 DIRECTED PRN Sodium Chloride 0 ml 03/11/25 06:00 Normal Saline Flush 10 Ml Syr IV 03/11/25 23:59 PRN PRN Sodium Chloride 0 ml 03/11/25 06:00 Normal Saline 10 Ml Vial IJ 03/11/25 23:59 DIRECTED PRN Sterile Water 0 ml 03/11/25 06:00 Water,Injection,Sterile 10 Ml Vial IJ 03/11/25 23:59 DIRECTED PRN PFSH Active Problems Active Problems: Problem Status Onset Code Prediabetes Acute R73.03 Hypercholesterolemia Acute E78.00 Elevated brain natriuretic peptide (BNP) level Acute R79.89 Elevated troponin Acute R79.89 Hypertensive crisis Acute I16.9 Medical History Medical History Essential hypertension Cervical spondylolysis Myocardial infarction 07/2024 Surgical History Surgical History History of cardiac catheterization History of total bilateral knee replacement (TKR) (06/18/18) DOS: 06/18/[address] Charles History of tonsillectomy and adenoidectomy Tobacco Smoking/Tobacco Use Status: Current every day Tobacco Type: cigarettes Smoking packs per day: 0.5 Alcohol Alcohol Intake: current Alcohol intake frequency: holidays/special occasions only Alcohol type: beer Substance Use Substance use: Occasionally Substance use type: marijuana Vital Signs and Lab Results Vital Signs Most Recent Vital Signs in EMR: Most Recent Vital Signs Temp Pulse Resp BP Pulse Ox 36.3 C L 78 14 99/73 L 99 03/11/25 07:17 03/11/25 07:17 03/11/25 07:17 03/11/25 07:17 03/11/25 07:17 Imaging and Studies Imaging and Studies Study information below may be from another EMR and interpreted by another provider. Please see original notes in EMR for more complete details. EKG Summary: 08/06/24 Conclusion Sinus rhythm...normal P axis, V-rate 60- 99 Right bundle branch block...QRSd>120, terminal axis(90,270) Echocardiogram Summary: 08/06/24 Conclusion Moderate to severe concentric left ventricular hypertrophy. Ejection fraction is 55%. There are no segmental wall motion abnormalities Normal right ventricular size and function Both atria are normal in size There is no structural or hemodynamically significant valvular disease Right ventricular systolic pressure could not be estimated Anesthesia Assessment and Plan Anesthesia History Personal History: No History of Anesthesia Complications Family History: Family History Unknown Exercise Tolerance Exercise Tolerance: Metabolic Equivalents>4 Pertinent Negatives Pertinent Negatives: No Symptoms of GERD, No Major Cardiovascular Symptoms or Complaints and No Major Pulmonary Symptoms or Complaints Cardiac & Pulmonary Exam Cardiac Exam: Normal S1/S2 Heart Sounds Pulmonary Exam: Clear Bilateral Breath Sounds Cardiac and Pulmonary Comment:: IN 07/2024 with stunting, no c.p. since Implantable Cardiac Device Does patient have a Pacemaker or an ICD?: No Airway Exam Known Difficult Airway: No Mallampati Class: 2 Mouth Opening: Normal (> 3cm) Thyromental Distance: Greater than 3 cm Facial Hair: Full [place] Neck Range of Motion: Full ROM Neck Circumference: Normal Teeth Condition: Generalized Poor Dentition (none loose per patient) ASA Classification ASA Score: ASA 2 Emergency Case?: No NPO Status NPO Status: NPO Clears >2 hours, Solids >8 hours Anesthesia Plan Resuscitation Status: Full Code Anesthesia Technique: General Anesthesia Airway Planned: Natural Airway Monitors Used: Standard Monitors
[2025-03-11 07:46] VITALS: BMI 25.0
--- NOTE | 2025-03-11 08:03 | W.PM.DSUDISC ---
Date of service: 03/11/25 Discharge Plan Disposition Patient Disposition: Home Condition: Stable Discharge Details Reason For Visit: screening colonoscopy Attending Provider: Maryjane Call Primary Care Provider: Tara Jaime Home Meds and New Rx's Prescriptions: Discontinued bisacodyl [Dulcolax (bisacodyl)] 5 mg tablet,delayed release (DR/EC) 5 mg PO ONCE Qty: 4 0RF Rx Instructions: Take per colonoscopy instructions provided by ordering providers office polyethylene glycol 3350 17 gram/dose powder 17 g PO ONCE Qty: 238 0RF Rx Instructions: Take per colonoscopy instructions provided by ordering providers office No Action glipizide 10 mg tablet extended release 24hr 10 mg PO DAILY losartan 100 mg tablet 100 mg PO DAILY ofloxacin 0.3 % drops 10 drp otic (ear) DAILY atorvastatin 80 mg tablet 80 mg PO DAILY carvedilol 25 mg tablet 25 mg PO BID Rx Instructions: must administer with a meal/food clopidogrel 75 mg tablet 75 mg PO DAILY nicotine 21-14-7 mg/24 hr patch, TD daily, sequential 1 patch transdermal DAILY nitroglycerin 0.4 mg tablet, sublingual 0.4 mg sublingual Q5M PRN Rx Instructions: do not exceed 3 doses per episode aspirin 81 mg tablet 81 mg PO DAILY acetaminophen 500 mg capsule 1,000 mg PO Q8H PRN (Reason: pain) Qty: 90 3RF Discharge Instructions Additional Instructions: Resume plavix today normal colonoscopy, zero polyps. Next screening colonoscopy due in 10 years. Diverticulosis of the sigmoid colon noted, no diverticulitis (infection) present. Take a daily fiber supplement and eat a high fiber diet to prevent problems and progression of diverticulosis. Stand Alone Forms: Anesthesia Discharge Inst., Colonoscopy Post Instructions, Lynne Lane (DSU) Activity:: Activity as Tolerated Diet:: As Tolerated Discharge Orders Discharge Orders: Discharge Order (Routine); Ordered 03/11/25 Ordered By: Maryjane Call DS: Diagnosis Discharge Diagnosis (1) Screening for colorectal cancer: Status: Acute (2) Diverticulosis of sigmoid colon: Status: Acute
--- NOTE | 2025-03-11 08:05 | COLE_ITS ---
Date of service: 03/11/25 Time of Service: 08:05 Colonoscopy Report Date of procedure: 03/11/25 Pre-op diagnosis general: Screening for colorectal cancer Post-op diagnosis procedure note: same (diverticulosis of sigmoid) Procedure: Colonoscopy Surgeon: Maryjane Call Anesthesia Type: General:No Airway Estimated blood loss (mL): 0 Pathology: none sent Complications: None Indications: screening for colorectal cancer Prep: Miralax/Dulcolax (GOOD) Procedure Description: Informed consent was obtained and the patient was taken to the procedure area. The patient was placed in left lateral decubitus position on the procedure table. Timeout was performed. Anesthesia was induced. A lubricated colonoscope was inserted through the anus and passed to the cecum. The cecum wa s identified by the ileocecal valve and the appendiceal orifice. The scope was then slowly withdrawn and the colonic and rectal mucosa examined. There are no colon or rectal mass lesions, polyps, AVMs. There is no inflammatory change. Sigmoid diverticulosis seen, dense wide and small mouthed diverticula. No diverticulitis. The scope was retroflexed in the anorectal junction examined. Uncomplicated internal hemorrhoids present. Assessment and plan: Screening for colorectal cancer Diverticulosis of sigmoid colon Normal colonoscopy. No polyps. Next screening colonoscopy will be due in 10 y ears. High fiber diet or fiber supplement recommended for diverticulosis.
[2025-03-11 08:30] VITALS: BP 102/74; PULSE 69; RESP 16; TEMP 36.2; O2SAT 93
--- NOTE | 2025-03-11 08:42 | W.ANESPOSTOP ---
Postoperative Evaluation Date, Time and Location Date Performed: 03/11/25 Time Performed: 08:42 Patient Location: Day Surgery Unit Vital Signs Most Recent Imported Vital Signs: Most Recent Vital Signs Temp Pulse Resp BP Pulse Ox 36.2 C L 69 16 102/74 93 03/11/25 08:30 03/11/25 08:30 03/11/25 08:30 03/11/25 08:30 03/11/25 08:30 Pain Score Most Recent Pain Score: Most Recent Pain Score Pain Level 0 03/11/25 08:30 Assessment Mental Status: Awake (Alert & Oriented to Patient Baseline) Airway and Respiratory Function: Patent airway with normal (patient baseline) respiratory exam Cardiovascular Function: Hemodynamically Stable Hydration Status: Adequately Hydrated Nausea & Vomiting: No Nausea or Vomiting Pain: Pt. Denies Any Pain Peripheral Nerve Block: Patient did not receive a nerve block
[2025-03-11 09:00] VITALS: BP 141/91; PULSE 69; RESP 12; TEMP 36.4; O2SAT 96
== END 2025-03-11 09:07 | disposition home or self-care (01) ==
PROVIDERS: PCP Nurse Practitioner Family; Visit Provider Surgery
PROC: 0DJD8ZZ Inspection of Lower Intestinal Tract, Via Natural or Artificial Opening Endoscopic (ICD-10-PCS; CPT 45378; principal; 2025-03-11 08:15)
DX: Z12.11 Encounter for screening for malignant neoplasm of colon (principal); Z12.12 Encounter for screening for malignant neoplasm of rectum; K57.30 Diverticulosis of large intestine without perforation or abscess without bleeding
CPT/HCPCS: 45378; J2003; J2704